=== PATIENT | female | born 1955 | race Caucasian/White ===

== ENCOUNTER 2021-12-30 08:03 | Observation (INO) ==
--- NOTE | 2021-12-30 08:27 | DR.DIZZY ---
HPI Time seen Time Seen by Provider: 12/30/21 08:25 Complaint Chief Complaint Doctor Comments: LOST OF BALANCE LAST PM AND FELL. ALSO HAS SOB AND COUGH. Context Stroke Symptoms: None ROS Review of Systems Constitutional: Weakness, Fatigue and Other (COUGH,VERTIGO) Eyes: No Symptoms Reported Respiratoy: Dry Cough and Short of Breath Cardiovascular: No Symptoms Reported Gastrointestinal/Abdominal: No Symptoms Reported Genitourinary: No Symptoms Reported Neurological: Dizziness Musculoskeletal: No Symptoms Reported Integumentary: No Symptoms Reported Hematologic/Lymphatic: No Symptoms Reported Endocrine: No Symptoms Reported Psychiatric: No Symptoms Reported All Other Systems: Reviewed and Negative PE Vital Signs Vitals: Temperature 98.4 F Pulse Rate 77 Respiratory Rate 30 Blood Pressure 181/77 O2 Sat by Pulse Oximetry 99 General Limitations: Other (DIZZY WITH CHANGE IN POSITION) General Appearance: Anxious and In Distress (MILD DISTRESS) Head Head Exam: Normal Inspection and Atraumatic Eyes Eye exam: Normal Appearance, PERRL and EOMI Pupils: Regular, Round: Bilateral and Reactive: Bilateral Sclera/Conjunctival: Normal Inspection: Bilateral ENT ENT Exam: Normal Exam, Normal Oropharynx and Normal External Ear Exam Neck Neck Exam: Normal Inspection, Full ROM and Trachea Midline Chest Chest Inspection: Normal Inspection and Symmetric Chest Wall Rise Respiratory Respiratory Exam: Normal Lung Sounds Bilat Cardiovascular Cardiovascular Exam: Regular Rate and Normal Rhythm Abdominal Exam Abdominal Exam: Normal Inspection, Normal Bowel Sounds and Soft Rectal Rectal Exam: Deferred Extremeties Extremities Exam: Normal Inspection and Full ROM Back Back Exam: Normal Inspection and Full ROM Neurologic Neurological Exam: Alert and Oriented X3 Speech: Fluid Speech Cranial Nerve Exam: EOM Function (II, III, IV, ): Normal, Facial Sensation (V): Normal, Facial Palsy (VII): Normal, Gag reflex (XI): Normal, Spinal Accessory Function (XI): Normal and Tongue Deviation: Normal Cerebellar Function: Finger to Nose: Normal Psychiatric Psychiatric Exam: Anxious MDM Differential Diagnosis Differential Diagnosis: Central Vertigo and Other (VIRAL URTI) COURSE Treatment Treatment: PATIENT REMAINED RELATIVELY STABLE IN ER . WAS PLACED ON [address] OF 88% UPON ARRIVAL. WAS FOUND TO HAVE RUL PNEUMONIA ON CHEST XRAY. WAS NEGATIVE FOR COVID AND HAD CBC OF 13.9. CALLED DR NG WHO IS MD TECHNICIAN [employer] AND SHE STATES THAT SHE WILL ACCEPT THE PATIENT WITH PNEUMONIA AND HYPOXIA. ABG SHOWED PO2 OF 47. CHEST XRAY SHOWED RUL PNEUMOMIA. PATIENT WAS MADE AWARE OF INTENT TO ADMIT AND WAS AGREABLE TO ADMIT. UTIL[facility] Labs Reviewed Laboratory Results Reviewed?: Yes Result Diagrams: 12/30/21 08:10 12/30/21 08:10 Laboratory: WBC 13.9 X10^3/uL (3.6-10.0) H 12/30/21 08:10 RBC 3.72 X10^6/uL (3.5-5.4) 12/30/21 08:10 Hgb 11.7 g/dL (12.0-16.0) L 12/30/21 08:10 Hct 34.1 % (36.0-47.0) L 12/30/21 08:10 MCV 91.8 fL (80.0-100.0) 12/30/21 08:10 MCH 31.5 pg (27.0-34.0) 12/30/21 08:10 MCHC 34.3 g/dL (33.0-35.0) 12/30/21 08:10 RDW 14.1 % (11.6-16.5) 12/30/21 08:10 Plt Count 327 X10^3/uL (150.0-450.0) 12/30/21 08:10 MPV 8.1 fL (7.4-11.0) 12/30/21 08:10 Neut % (Auto) 84.4 % (42.0-75.0) H 12/30/21 08:10 Lymph % (Auto) 9.6 % (21.0-51.0) L 12/30/21 08:10 [place] % (Auto) 3.9 % (0.0-13.0) 12/30/21 08:10 Eos % (Auto) 1.4 % (0.9-2.9) 12/30/21 08:10 Baso % (Auto) 0.7 % (0.2-1.0) 12/30/21 08:10 Neut # (Auto) 11.7 x10^3/uL (2.2-4.8) H 12/30/21 08:10 Lymph # (Auto) 1.3 X10^3/uL (1.3-2.9) 12/30/21 08:10 [place] # (Auto) 0.5 x10^3/uL (0.3-0.8) 12/30/21 08:10 Eos # (Auto) 0.2 x10^3/uL (0.0-0.2) 12/30/21 08:10 Baso # (Auto) 0.1 X10^3/uL (0.0-0.1) 12/30/21 08:10 Absolute Nucleated RBC 0.0 /100WBC 12/30/21 08:10 Sample Site Lbra 12/30/21 11:18 ABG pH 7.410 (7.35-7.45) 12/30/21 11:18 ABG pCO2 40.0 mmHg (35.0-45.0) 12/30/21 11:18 ABG pO2 47.0 mmHg (80.0-100.0) L* 12/30/21 11:18 ABG HCO3 25.4 mmol/L (22-26) 12/30/21 11:18 ABG O2 Saturation 83.0 % (90-100) L* 12/30/21 11:18 ABG Base Excess 0.7 mmol/L (-2.0-2.0) 12/30/21 11:18 [place] Test N/a 12/30/21 11:18 A-a Gradient 53.0 mmHg 12/30/21 11:18 FiO2 21.0 12/30/21 11:18 Blood Gas Comments Pt macey well elj 12/30/21 11:18 Sodium 138 mmol/L (136-145) 12/30/21 08:10 Corrected Sodium TNP 12/30/21 08:10 Potassium 4.0 mmol/L (3.5-5.1) 12/30/21 08:10 Chloride 103 mmol/L (98-107) 12/30/21 08:10 Carbon Dioxide 26.6 mmol/L (21-32) 12/30/21 08:10 BUN 25 mg/dL (7-18) H 12/30/21 08:10 Creatinine 1.22 mg/dL (0.55-1.02) H 12/30/21 08:10 Est GFR (MDRD) Af Amer 57 (>60) L 12/30/21 08:10 Est GFR (MDRD) Non-Af 47 (>60) L 12/30/21 08:10 Glucose 94 mg/dL (65-99) 12/30/21 08:10 Calcium 8.7 mg/dL (8.5-10.1) 12/30/21 08:10 Corrected Calcium 9.6 mg/dL (8.5-10.1) 12/30/21 08:10 Total Bilirubin 0.50 mg/dL (0.2-1.0) 12/30/21 08:10 AST 32 Units/L (15-37) 12/30/21 08:10 ALT 43 Units/L (12-78) 12/30/21 08:10 Alkaline Phosphatase 96 Units/L (46-116) 12/30/21 08:10 Creatine Kinase 124 Units/L (26-192) 12/30/21 08:10 CK-MB (CK-2) 2.6 ng/mL (0-4.0) 12/30/21 08:10 CK/CKMB % Calc 2.1 % (<4) 12/30/21 08:10 Troponin I High Sens 4.8 ng/L (4.0-60.0) 12/30/21 08:10 Total Protein 7.3 g/dL (6.4-8.2) 12/30/21 08:10 Albumin 2.9 g/dL (3.4-5.0) L 12/30/21 08:10 Globulin 4.4 g/dL (2.5-4.5) 12/30/21 08:10 Albumin/Globulin Ratio 0.7 Ratio (1.1-2.1) L 12/30/21 08:10 Specimen Type Clean catch urine 12/30/21 09:55 Urine Color Pale yellow (YELLOW) 12/30/21 09:55 Urine Appearance Clear (CLEAR) 12/30/21 09:55 Urine pH 6.0 (5.0 - 8.0) 12/30/21 09:55 Ur Specific [place] 1.020 (1.000-1.030) 12/30/21 09:55 Urine Protein Negative (NEGATIVE) 12/30/21 09:55 Urine Glucose (UA) Negative (NEGATIVE) 12/30/21 09:55 Urine Ketones Negative (NEGATIVE) 12/30/21 09:55 Urine Blood 1+ (NEGATIVE) 12/30/21 09:55 Urine Nitrite Negative (NEGATIVE) 12/30/21 09:55 Urine Bilirubin Negative (NEGATIVE) 12/30/21 09:55 Urine Urobilinogen Normal (NORMAL) 12/30/21 09:55 Ur Leukocyte Esterase Negative (NEGATIVE) 12/30/21 09:55 Urine RBC 0-2 /HPF (0-3) 12/30/21 09:55 Urine WBC 0-2 /HPF (0-5) 12/30/21 09:55 Ur Squamous Epith Cells Rare /HPF (NEGATIVE) 12/30/21 09:55 Urine Bacteria Trace /HPF (NEGATIVE) 12/30/21 09:55 Hyaline Casts Few /LPF (NEGATIVE) 12/30/21 09:55 Ur Culture Indicated? No/not indicated 12/30/21 09:55 SARS-CoV-2 (PCR) Negative (NEGATIVE) 12/30/21 08:08 Influenza Type A (PCR) Negative (NEGATIVE) 12/30/21 08:08 Influenza Type B (PCR) Negative (NEGATIVE) 12/30/21 08:08 RSV (PCR) Negative (NEGATIVE) 12/30/21 08:08 Opioid Opioid Risk Tool Total: 0 Total Score Risk Category: Low Risk Copyright: Javi LEMON predicting aberrant behaviors Discharge Plan Diagnosis Discharge Problem: Pneumonia, Hypoxia Discharge Plan Patient Disposition: 09 ADMITTED INPATIENT Condition: Stable Health Concerns: Post Hospitalization: new medications and changes needed to prevent readmission or further decline. Pt educated and given instructions on all concerns. Plan of Treatment: Continue with present treatment and follow up plan. Pt is to keep follow up appointment as instructed and take medications as ordered. Orders to Discharge Patient Discharge Orders: Transfer (Routine); Ordered 12/30/21 Ordered By: Cleve Valentino Follow ups/Referrals Follow ups/Referrals: FELICITA SPENCE [Primary Care Provider] - 3 days Instructions Stand Alone Forms: Precautions for COVID19, [facility], Patient Portal, Social Distancing
[2021-12-30 08:34] LABS: BASOPHILS # (AUTO) 0.1 X10^3/uL (0.0-0.1); BASOPHILS % (AUTO) 0.7 % (0.2-1.0); EOSINOPHILS # (AUTO) 0.2 x10^3/uL (0.0-0.2); EOSINOPHILS % (AUTO) 1.4 % (0.9-2.9); HEMATOCRIT 34.1 % (36.0-47.0); HEMOGLOBIN 11.7 g/dL (12.0-16.0); LYMPHOCYTES # (AUTO) 1.3 X10^3/uL (1.3-2.9); LYMPHOCYTES % (AUTO) 9.6 % (21.0-51.0); MEAN CORPUSCULAR HEMOGLOBIN 31.5 pg (27.0-34.0); MEAN CORPUSCULAR HGB CONC 34.3 g/dL (33.0-35.0); MEAN CORPUSCULAR VOLUME 91.8 fL (80.0-100.0); MEAN PLATELET VOLUME 8.1 fL (7.4-11.0); MONOCYTES # (AUTO) 0.5 x10^3/uL (0.3-0.8); MONOCYTES % (AUTO) 3.9 % (0.0-13.0); NEUTROPHILS # (AUTO) 11.7 x10^3/uL (2.2-4.8); NEUTROPHILS % (AUTO) 84.4 % (42.0-75.0); RED BLOOD COUNT 3.72 X10^6/uL (3.5-5.4); RED CELL DISTRIBUTION WIDTH 14.1 % (11.6-16.5); WHITE BLOOD COUNT 13.9 X10^3/uL (3.6-10.0)
[2021-12-30 08:40] VITALS: BMI 29.2
[2021-12-30 08:54] LABS: ALANINE AMINOTRANSFERASE 43 Units/L (12-78); ALBUMIN 2.9 g/dL (3.4-5.0); ALKALINE PHOSPHATASE 96 Units/L (46-116); ASPARTATE AMINO TRANSFERASE 32 Units/L (15-37); BLOOD UREA NITROGEN 25 mg/dL (7-18); CALCIUM 8.7 mg/dL (8.5-10.1); CARBON DIOXIDE 26.6 mmol/L (21-32); CHLORIDE 103 mmol/L (98-107); CKMB % 2.1 % (<4); COR CA(FOR HYPOALB) 9.6 mg/dL (8.5-10.1); CREATINE KINASE 124 Units/L (26-192); CREATINE KINASE MB 2.6 ng/mL (0-4.0); CREATININE 1.22 mg/dL (0.55-1.02); SODIUM 138 mmol/L (136-145); TOTAL PROTEIN 7.3 g/dL (6.4-8.2); eGFR NON BLACK RACES 47 (>60)
--- NOTE | 2021-12-30 09:03 | CT ---
HISTORYDIZZINESSSTUDYBRAIN W/O CONCOMPARISONNone.TECHNIQUEMultiple axial images of the head were performed from the skullbase to the vertex using standard departmental protocol. Sagittal and coronal reformatted images were performed. Dose reduction techniques including Automated Exposure Control (AEC) and adjustment of mA and kV were utilized.FINDINGSThe lateral ventricles and basilar cisterns are patent.No parenchymal mass or hematoma. Walters-white differentiation appears acutely preserved.No extra-axial collection.The globes are intact.No air fluid levels in the paranasal sinuses. No paranasal sinus wall thickening or sclerosis. Mastoid air cells are clear.The calvarium is intact. Small presumed contusion at the left posterior scalp.IMPRESSIONNo acute intracranial abnormality.Electronically signed by: Bayron Moore (Dec 30, 2021 09:01:56)
--- NOTE | 2021-12-30 09:11 | RAD ---
HISTORYDizzySTUDYPortable AP chestCOMPARISONNone availableFINDINGSNormal heart size and contour. There is a diffuse airspace involvement in the periphery of right upper and lower lobes without evidence for mass formation or pleural fluid. The left lung is clear.IMPRESSIONDiffuse infiltrate in the right lung may be acute or chronic; there is no prior exam available for comparison. Findings are concerning for pneumonia. Correlate with clinical findings and follow-up.Electronically signed by: DANY GOMEZ (Dec 30, 2021 09:10:18)
[2021-12-30] MEDS ORDERED: ZOFRAN TAB 4 MG PO PRN (10:08)
[2021-12-30] MEDS ORDERED: ZOFRAN TAB 4 MG ONE (10:09)
[2021-12-30] MEDS ORDERED: ZOFRAN TAB 4 MG PO ONE (10:13)
[2021-12-30 10:25] LABS: BILIRUBIN,URINE NEGATIVE (NEGATIVE); BLOOD/HEMOGLOBIN,URINE 1+ (NEGATIVE); GLUCOSE, URINE NEGATIVE (NEGATIVE); KETONES,URINE NEGATIVE (NEGATIVE); LEUKOCYTE ESTERASE ,URINE NEGATIVE (NEGATIVE); NITRITES,URINE NEGATIVE (NEGATIVE); PROTEIN,URINE NEGATIVE (NEGATIVE); UROBILINOGEN,URINE NORMAL (NORMAL)
[2021-12-30 10:37] LABS: APPEARANCE,URINE CLEAR (CLEAR); BACTERIA,URINE TRACE /HPF (NEGATIVE); COLOR,URINE PALE YELLOW (YELLOW); RBC,URINE 0-2 /HPF (0-3); SQUAMOUS EPITHELIAL CELL,UR RARE /HPF (NEGATIVE)
[2021-12-30 10:38] LABS: HYALINE CASTS, URINE FEW /LPF (NEGATIVE)
[2021-12-30] MEDS ORDERED: SOLU-Medrol 125 MG VIAL IVP ONE (11:04)
[2021-12-30] MEDS ORDERED: TESSALON PERLES PO ONE ×2 (11:05→11:11)
[2021-12-30] MEDS ORDERED: ROCEPHIN VIAL 1 GRAM ONE (11:11)
[2021-12-30] MEDS ORDERED: SOLU-Medrol 125 MG VIAL ONE (11:11)
[2021-12-30] MEDS ORDERED: NS 100 ML IV 100 ML ONE (11:12)
[2021-12-30] MEDS: ROCEPHIN VIAL 1 GRAM 1 G in NS 100 ML IV 100 ML IV SCH (11:21)
[2021-12-30 11:25] LABS: ABG BASE EXCESS 0.7 mmol/L (-2.0-2.0); ABG HCO3 25.4 mmol/L (22-26)
[2021-12-30] MEDS ORDERED: ROCEPHIN 1 GRAM IV PREMIX 1 G/50 ML IV.SOLN. IV SCH (12:29)
[2021-12-30] MEDS ORDERED: SALINE 3% 15 ML NEB TX NEB ONE (16:31)
[2021-12-30] MEDS ORDERED: SALINE 3% 15 ML NEB TX ONE (16:36)
[2021-12-30] MEDS ORDERED: DUONEB 0.5 MG/3 MG (3 mL) NEB ONE (16:36)
[2021-12-30] MEDS: DUONEB 0.5 MG/3 MG (3 mL) NEB SCH (16:40)
[2021-12-30] MEDS ORDERED: RESTORIL CAP 30 MG PO PRN (16:56)
[2021-12-30] MEDS: NEURONTIN CAP 400 MG PO SCH ×3 (17:20→22:10)
[2021-12-30] MEDS: DIOVAN TAB 80 MG PO SCH (17:20)
[2021-12-30] MEDS ORDERED: PULMICORT NEB TX 0.5 MG NEB ONE (19:58)
[2021-12-30] MEDS ORDERED: RESTORIL CAP 15 MG PO ONE (20:06)
[2021-12-30] MEDS: RESTORIL CAP 15 MG PO PRN (20:26)
[2021-12-30] MEDS: NORCO 7.5/325 MG TAB PO PRN (20:27)
[2021-12-30] MEDS: ZOCOR TAB 10 MG PO SCH (20:27)
[2021-12-30] MEDS: PROzac PO SCH (20:27)
[2021-12-30] MEDS: PULMICORT NEB TX 0.5 MG NEB SCH (20:54)
[2021-12-30] MEDS ORDERED: NORCO 7.5/325 MG TAB PO SCH (21:00)
[2021-12-30] MEDS ORDERED: PULMICORT NEB TX 0.5 MG NEB SCH (21:00)
[2021-12-30] MEDS ORDERED: PROzac PO SCH (21:00)
[2021-12-30] MEDS: XANAX PO PRN (21:00)
[2021-12-31] MEDS: DUONEB 0.5 MG/3 MG (3 mL) NEB SCH ×4 (00:10→18:17)
[2021-12-31] MEDS: NEURONTIN CAP 400 MG PO SCH ×3 (05:10→21:47)
[2021-12-31 05:20] LABS: BASOPHILS % (AUTO) 0.1 % (0.2-1.0); HEMATOCRIT 32.6 % (36.0-47.0); HEMOGLOBIN 11.1 g/dL (12.0-16.0); LYMPHOCYTES # (AUTO) 0.5 X10^3/uL (1.3-2.9); LYMPHOCYTES % (AUTO) 4.4 % (21.0-51.0); MEAN CORPUSCULAR HEMOGLOBIN 30.9 pg (27.0-34.0); MEAN PLATELET VOLUME 7.9 fL (7.4-11.0); MONOCYTES # (AUTO) 0.2 x10^3/uL (0.3-0.8); MONOCYTES % (AUTO) 1.9 % (0.0-13.0); NEUTROPHILS % (AUTO) 93.6 % (42.0-75.0); RED BLOOD COUNT 3.58 X10^6/uL (3.5-5.4); RED CELL DISTRIBUTION WIDTH 14.2 % (11.6-16.5); WHITE BLOOD COUNT 11.8 X10^3/uL (3.6-10.0)
[2021-12-31 05:52] LABS: ALANINE AMINOTRANSFERASE 37 Units/L (12-78); ALBUMIN 2.4 g/dL (3.4-5.0); ALKALINE PHOSPHATASE 92 Units/L (46-116); ASPARTATE AMINO TRANSFERASE 18 Units/L (15-37); BLOOD UREA NITROGEN 23 mg/dL (7-18); CALCIUM 8.7 mg/dL (8.5-10.1); CARBON DIOXIDE 27.3 mmol/L (21-32); CHLORIDE 104 mmol/L (98-107); COR NA(FOR HYPERGLY) 138 mmol/L (136-145); SODIUM 137 mmol/L (136-145); TOTAL PROTEIN 6.6 g/dL (6.4-8.2); eGFR NON BLACK RACES > 60 (>60)
[2021-12-31 06:13] LABS: PLATELET MORPHOLOGY COMMENT NORMAL (NORMAL)
[2021-12-31] MEDS: DIOVAN TAB 80 MG PO SCH (08:21)
[2021-12-31] MEDS: PROzac PO SCH ×2 (08:21→20:50)
[2021-12-31] MEDS: ROCEPHIN VIAL 1 GRAM 1 G in NS 100 ML IV 100 ML IV SCH (08:22)
[2021-12-31] MEDS ORDERED: PROzac PO SCH ×2 (09:00)
[2021-12-31] MEDS: PULMICORT NEB TX 0.5 MG NEB SCH ×2 (09:40→20:00)
[2021-12-31] MEDS: NORCO 7.5/325 MG TAB PO PRN ×2 (10:09→20:51)
[2021-12-31] MEDS: ZITHROMAX INJ 500 MG VIAL 250 MG in NS 250 ML IV 250 ML IV SCH (11:34)
--- NOTE | 2021-12-31 11:41 | DR.H&P ---
H&P History & Physical for Day of: H&P Date: 12/31/21 Chief Complaint Chief Complaint: fall, shortness of breath Allergies Allergies Allergy/AdvReac Type Severity Reaction Status Date / Time No Known Drug Allergies Allergy Verified 12/30/21 10:08 History of Present Illness History of Present Illness: Ms Lofton is a 66y/o female with a PMH of COPD, chronic pain disorder due to DDD, anxiety/depression, insomnia and HTN presented with worsening shortness of breath, cough and dizziness. She reports having a fall on and feeling sick since then. ER wokr-up included CXR which showed right lung infiltrate. Cardiac enzymes were negative. CT-brain did not show any acute process. Patient's ABG showed significant hypoxia and she was requiring 2L O2 via NC. Patient was started on IV Rocephin and admitted for pneumonia and respiratory failure. She feels slightly better today. She has been having productive cough. Labs/imaging reviewed COVID (-) AB.41/40/47/25 sats 83% on room air Cultures pending Plan: will order CTA-chest to evaluate further. Continue IV Rocephin, add IV azithromycin. Continue nebs and pulmicort. Wean O2 as tolerated to keep sats > 92%. Resume home medications. Discussed patient's benzodiazepines and it's side effects. Patient currently takes xanax, Klonopin and Restoril for anxiety and insomnia. Resume BP medications. Monitor AM labs/imaging. Past Medical History Past Medical History: GERD and Hypertension Social History Does patient currently use any type of tobacco product: No (Pt states quit 3 to 4 day) Have you used tobacco products in the last 12 months: Yes Type of Tobacco Use: Cigarettes Does any household member use tobacco: Yes Alcohol Use: None Drug Use: None Medications Home Medications: No Known Drug Allergies Allergy (Verified 12/30/21 10:08) CONTINUE taking the following medications alprazolam 0.5 mg tablet 1 tab PO BID PRN 12/30/21 [History] clonazepam 1 mg tablet 1 tab PO QPM PRN 12/30/21 [History] fluoxetine 20 mg capsule 3 cap PO QPM 12/30/21 [History] gabapentin 400 mg capsule 1 cap PO TID 12/30/21 [History] hydrocodone 7.5 mg-acetaminophen 325 mg tablet 1 tab PO BID PRN 12/30/21 [History] ibuprofen 800 mg tablet 1 tab PO TID PRN 12/30/21 [History] simvastatin 10 mg tablet 1 tab PO QPM 12/30/21 [History] temazepam 30 mg capsule 1 cap PO QPM PRN 12/30/21 [History] valsartan 40 mg tablet 1 tab PO QDAY 12/30/21 [History] Labs Result Diagrams: 12/31/21 04:40 12/31/21 04:40 Labs: 12/31/21 06:57 Sputum - Expectorated Sputum - Final Laboratory WBC 11.8 X10^3/uL (3.6-10.0) H 12/31/21 04:40 RBC 3.58 X10^6/uL (3.5-5.4) 12/31/21 04:40 Hgb 11.1 g/dL (12.0-16.0) L 12/31/21 04:40 Hct 32.6 % (36.0-47.0) L 12/31/21 04:40 MCV 91.0 fL (80.0-100.0) 12/31/21 04:40 MCH 30.9 pg (27.0-34.0) 12/31/21 04:40 MCHC 34.0 g/dL (33.0-35.0) 12/31/21 04:40 RDW 14.2 % (11.6-16.5) 12/31/21 04:40 Plt Count 350 X10^3/uL (150.0-450.0) 12/31/21 04:40 Plt Count Comment Adequate (ADEQUATE) 12/31/21 04:40 MPV 7.9 fL (7.4-11.0) 12/31/21 04:40 Neut % (Auto) 93.6 % (42.0-75.0) H 12/31/21 04:40 Lymph % (Auto) 4.4 % (21.0-51.0) L 12/31/21 04:40 [place] % (Auto) 1.9 % (0.0-13.0) 12/31/21 04:40 Eos % (Auto) 0.0 % (0.9-2.9) L 12/31/21 04:40 Baso % (Auto) 0.1 % (0.2-1.0) L 12/31/21 04:40 Neut # (Auto) 11.0 x10^3/uL (2.2-4.8) H 12/31/21 04:40 Lymph # (Auto) 0.5 X10^3/uL (1.3-2.9) L 12/31/21 04:40 [place] # (Auto) 0.2 x10^3/uL (0.3-0.8) L 12/31/21 04:40 Eos # (Auto) 0.0 x10^3/uL (0.0-0.2) 12/31/21 04:40 Baso # (Auto) 0.0 X10^3/uL (0.0-0.1) 12/31/21 04:40 Absolute Nucleated RBC 0.1 /100WBC 12/31/21 04:40 Total Counted 100 12/31/21 04:40 Neutrophils % (Manual) 93 % (39-76) H 12/31/21 04:40 Lymphocytes % (Manual) 4 % (13-43) L 12/31/21 04:40 Monocytes % (Manual) 3 % (4-9) L 12/31/21 04:40 Plt Morphology Comment Normal (NORMAL) 12/31/21 04:40 RBC Morphology Normal (NORMAL) 12/31/21 04:40 Sample Site [facility] 12/30/21 11:18 ABG pH 7.410 (7.35-7.45) 12/30/21 11:18 ABG pCO2 40.0 mmHg (35.0-45.0) 12/30/21 11:18 ABG pO2 47.0 mmHg (80.0-100.0) L* 12/30/21 11:18 ABG HCO3 25.4 mmol/L (22-26) 12/30/21 11:18 ABG O2 Saturation 83.0 % (90-100) L* 12/30/21 11:18 ABG Base Excess 0.7 mmol/L (-2.0-2.0) 12/30/21 11:18 [place] Test N/a 12/30/21 11:18 A-a Gradient 53.0 mmHg 12/30/21 11:18 FiO2 21.0 12/30/21 11:18 Blood Gas Comments Pt macey well elj 12/30/21 11:18 Sodium 137 mmol/L (136-145) 12/31/21 04:40 Corrected Sodium 138 mmol/L (136-145) 12/31/21 04:40 Potassium 4.5 mmol/L (3.5-5.1) 12/31/21 04:40 Chloride 104 mmol/L (98-107) 12/31/21 04:40 Carbon Dioxide 27.3 mmol/L (21-32) 12/31/21 04:40 BUN 23 mg/dL (7-18) H 12/31/21 04:40 Creatinine 0.90 mg/dL (0.55-1.02) 12/31/21 04:40 Est GFR (MDRD) Af Amer > 60 (>60) 12/31/21 04:40 Est GFR (MDRD) Non-Af > 60 (>60) 12/31/21 04:40 Glucose 136 mg/dL (65-99) H 12/31/21 04:40 Calcium 8.7 mg/dL (8.5-10.1) 12/31/21 04:40 Corrected Calcium 10.0 mg/dL (8.5-10.1) 12/31/21 04:40 Total Bilirubin 0.20 mg/dL (0.2-1.0) 12/31/21 04:40 AST 18 Units/L (15-37) 12/31/21 04:40 ALT 37 Units/L (12-78) 12/31/21 04:40 Alkaline Phosphatase 92 Units/L (46-116) 12/31/21 04:40 Creatine Kinase 124 Units/L (26-192) 12/30/21 08:10 CK-MB (CK-2) 2.6 ng/mL (0-4.0) 12/30/21 08:10 CK/CKMB % Calc 2.1 % (<4) 12/30/21 08:10 Troponin I High Sens 4.8 ng/L (4.0-60.0) 12/30/21 08:10 Total Protein 6.6 g/dL (6.4-8.2) 12/31/21 04:40 Albumin 2.4 g/dL (3.4-5.0) L 12/31/21 04:40 Globulin 4.2 g/dL (2.5-4.5) 12/31/21 04:40 Albumin/Globulin Ratio 0.6 Ratio (1.1-2.1) L 12/31/21 04:40 Specimen Type Clean catch urine 12/30/21 09:55 Urine Color Pale yellow (YELLOW) 12/30/21 09:55 Urine Appearance Clear (CLEAR) 12/30/21 09:55 Urine pH 6.0 (5.0 - 8.0) 12/30/21 09:55 Ur Specific [place] 1.020 (1.000-1.030) 12/30/21 09:55 Urine Protein Negative (NEGATIVE) 12/30/21 09:55 Urine Glucose (UA) Negative (NEGATIVE) 12/30/21 09:55 Urine Ketones Negative (NEGATIVE) 12/30/21 09:55 Urine Blood 1+ (NEGATIVE) 12/30/21 09:55 Urine Nitrite Negative (NEGATIVE) 12/30/21 09:55 Urine Bilirubin Negative (NEGATIVE) 12/30/21 09:55 Urine Urobilinogen Normal (NORMAL) 12/30/21 09:55 Ur Leukocyte Esterase Negative (NEGATIVE) 12/30/21 09:55 Urine RBC 0-2 /HPF (0-3) 12/30/21 09:55 Urine WBC 0-2 /HPF (0-5) 12/30/21 09:55 Ur Squamous Epith Cells Rare /HPF (NEGATIVE) 12/30/21 09:55 Urine Bacteria Trace /HPF (NEGATIVE) 12/30/21 09:55 Hyaline Casts Few /LPF (NEGATIVE) 12/30/21 09:55 Ur Culture Indicated? No/not indicated 12/30/21 09:55 SARS-CoV-2 (PCR) Negative (NEGATIVE) 12/30/21 08:08 Influenza Type A (PCR) Negative (NEGATIVE) 12/30/21 08:08 Influenza Type B (PCR) Negative (NEGATIVE) 12/30/21 08:08 RSV (PCR) Negative (NEGATIVE) 12/30/21 08:08 Review of Systems Constitutional: Weakness and Malaise ENT: No Symptoms Reported Respiratory: Cough, SOB with Excertion and Sputum Cardiovascular: No Symptoms Reported Gastrointestinal: Nausea Genitourinary: No Symptoms Reported Musculoskeletal: Back Pain and Neck Pain Skin: No Symptoms Reported Neurological: No Symptoms Reported Physical Exam Vital Signs: Temperature 98.6 F Pulse Rate [Left Brachial] 81 Pulse Rate 70 Respiratory Rate 23 Blood Pressure [Left Arm] 118/62 Blood Pressure 181/77 O2 Sat by Pulse Oximetry 94 Oriented: Normal Eyes: Normal Ear: Normal Nose: Normal Throat: Normal Respiratory: Rales Throughout Cardiovascular: Normal Auscultation: Bowel Sounds: Normal Palpation: Normal Tenderness: Normal Skin: Normal Musculoskeletal: Back:Thoracic, Back:Lumbar, Back:Midline and Back:Paraspinous Psychiatric: Normal Mood Description: Calm Affect: Normal Speech Pattern: Clear and Appropriate Assessment/Plan (1) Pneumonia: Status: Acute (2) Hypoxia: Status: Acute (3) Anemia: Status: Acute (4) HTN (hypertension): Status: Acute (5) DDD (degenerative disc disease): Status: Acute (6) Anxiety: Status: Acute (7) Insomnia: Status: Acute
--- NOTE | 2021-12-31 11:43 | CT ---
PROCEDURE: CTA Chest .HISTORY: HYPOXIA, PNEUMONIA .TECHNIQUE: Axial images were performed through the chest with the administration of IV contrast with multiplanar reformations . 3D and MIPS reconstructions were performed and reviewed. Dose reduction techniques including Automated Exposure Control (AEC) and adjustment of mA and kV were utilized .COMPARISON: None .TECHNICAL QUALITY: Satisfactory .FINDINGS:Mild atherosclerosis aorta with no aneurysm or dissection.No evidence of pulmonary embolus.Mediastinum and hilar regions show no masses or lymphadenopathy.Normal size heart with no pericardial fluid.No pulmonary consolidation, masses, or pleural fluid. Some peripheral fibrosis both lung loera.Visualized upper abdomen shows no significant abnormality.No acute bony abnormality. Old compression fracture involving T11 vertebral body.IMPRESSION:1. No pulmonary embolus or aortic dissection.2. No pulmonary consolidation.Electronically signed by: Dawit Rogers (Dec 31, 2021 11:42:30)
[2021-12-31] MEDS: XANAX PO PRN (18:17)
[2021-12-31] MEDS: ZOCOR TAB 10 MG PO SCH (20:51)
[2021-12-31] MEDS: RESTORIL CAP 15 MG PO PRN (21:29)
[2022-01-01] MEDS: DUONEB 0.5 MG/3 MG (3 mL) NEB SCH ×5 (00:10→22:00)
[2022-01-01] MEDS: NEURONTIN CAP 400 MG PO SCH ×3 (05:08→21:55)
[2022-01-01 05:11] LABS: BASOPHILS # (AUTO) 0.1 X10^3/uL (0.0-0.1); EOSINOPHILS # (AUTO) 0.1 x10^3/uL (0.0-0.2); EOSINOPHILS % (AUTO) 0.8 % (0.9-2.9); HEMATOCRIT 31.8 % (36.0-47.0); HEMOGLOBIN 10.7 g/dL (12.0-16.0); LYMPHOCYTES # (AUTO) 1.7 X10^3/uL (1.3-2.9); LYMPHOCYTES % (AUTO) 12.1 % (21.0-51.0); MEAN CORPUSCULAR HEMOGLOBIN 30.8 pg (27.0-34.0); MEAN CORPUSCULAR HGB CONC 33.8 g/dL (33.0-35.0); MEAN CORPUSCULAR VOLUME 91.2 fL (80.0-100.0); MEAN PLATELET VOLUME 8.5 fL (7.4-11.0); MONOCYTES # (AUTO) 0.7 x10^3/uL (0.3-0.8); MONOCYTES % (AUTO) 5.3 % (0.0-13.0); NEUTROPHILS # (AUTO) 11.5 x10^3/uL (2.2-4.8); NEUTROPHILS % (AUTO) 80.8 % (42.0-75.0); RED BLOOD COUNT 3.49 X10^6/uL (3.5-5.4); RED CELL DISTRIBUTION WIDTH 13.9 % (11.6-16.5); WHITE BLOOD COUNT 14.2 X10^3/uL (3.6-10.0)
[2022-01-01 05:13] LABS: BLOOD UREA NITROGEN 19 mg/dL (7-18); CALCIUM 8.9 mg/dL (8.5-10.1); CARBON DIOXIDE 28.7 mmol/L (21-32); CHLORIDE 104 mmol/L (98-107); CREATININE 0.87 mg/dL (0.55-1.02); SODIUM 140 mmol/L (136-145); eGFR NON BLACK RACES > 60 (>60)
[2022-01-01] MEDS: PROzac PO SCH ×2 (08:36→20:33)
[2022-01-01] MEDS: DIOVAN TAB 80 MG PO SCH (08:36)
[2022-01-01] MEDS: ZITHROMAX INJ 500 MG VIAL 250 MG in NS 250 ML IV 250 ML IV SCH (08:37)
[2022-01-01] MEDS: ROCEPHIN VIAL 1 GRAM 1 G in NS 100 ML IV 100 ML IV SCH (08:37)
[2022-01-01] MEDS: NORCO 7.5/325 MG TAB PO PRN ×2 (08:37→20:34)
[2022-01-01] MEDS: PULMICORT NEB TX 0.5 MG NEB SCH ×2 (09:00→22:00)
--- NOTE | 2022-01-01 11:22 | PCM.PROG ---
Progress Note Progress Note for Day of Date of Exam: 01/01/22 Subjective Subjective: Patient seen at bedside, no events overnight. She states she has been coughing a lot and not able to bring any sputum up. She reports some exertional dyspnea. Denies fever or chills. Denies N/V/D. She remains on 2L NC. Labs/imaging reviewed: Hgb 10.7 CTA-chest: no PE, fibrosis noted Sputum: Gram (-) rods Blood cx (-) Plan: will add prednisone for pulmonary fibrosis, continue IV Rocephin and Azithromycin. Continue nebs and pulmicort. Wean O2 as tolerated to keep sats > 92%. Continue anti-tussives. Follow pending cultures. Monitor AM labs/imaging. Past Medical Family Social History Allergies: Allergies No Known Drug Allergies Allergy (Verified 12/30/21 10:08) Vital Signs and I&O's Vital Signs: Temperature 98.2 F Pulse Rate [Left Brachial] 68 Pulse Rate 70 Respiratory Rate 20 Blood Pressure [Right Arm] 145/72 Blood Pressure [Left Arm] 129/59 Blood Pressure 181/77 O2 Sat by Pulse Oximetry 95 Intake and Output: Intake & Output 12/29/21 12/30/21 12/31/21 01/01/22 23:59 23:59 23:59 23:59 Intake Total 1000 / 1000 1367 / 1367 1320 / 1320 Balance 1000 / 1000 1367 / 1367 1320 / 1320 Physical Exam Oriented: Normal Eyes: Normal Ear: Normal Nose: Normal Throat: Normal Respiratory: Generalized, Wheezes and Rales Cardiovascular: Normal Auscultation: Bowel Sounds: Normal Tenderness: Normal Skin: Normal Musculoskeletal: Back:Thoracic, Back:Lumbar, Back:Midline and Back:Paraspinous Psychiatric: Normal Mood Description: Calm Affect: Normal Speech Pattern: Clear and Appropriate Laboratory and Diagnostics Result Diagrams: 01/01/22 04:05 01/01/22 04:05 Labs: 12/31/21 06:57 Sputum - Expectorated Sputum Sputum Culture - Preliminary 12/31/21 06:57 Sputum - Expectorated Sputum - Final 12/30/21 12:05 Blood Blood Culture - Preliminary 12/30/21 11:48 Blood Blood Culture - Preliminary Laboratory WBC 14.2 X10^3/uL (3.6-10.0) H 01/01/22 04:05 RBC 3.49 X10^6/uL (3.5-5.4) L 01/01/22 04:05 Hgb 10.7 g/dL (12.0-16.0) L 01/01/22 04:05 Hct 31.8 % (36.0-47.0) L 01/01/22 04:05 MCV 91.2 fL (80.0-100.0) 01/01/22 04:05 MCH 30.8 pg (27.0-34.0) 01/01/22 04:05 MCHC 33.8 g/dL (33.0-35.0) 01/01/22 04:05 RDW 13.9 % (11.6-16.5) 01/01/22 04:05 Plt Count 351 X10^3/uL (150.0-450.0) 01/01/22 04:05 Plt Count Comment Adequate (ADEQUATE) 12/31/21 04:40 MPV 8.5 fL (7.4-11.0) 01/01/22 04:05 Neut % (Auto) 80.8 % (42.0-75.0) H 01/01/22 04:05 Lymph % (Auto) 12.1 % (21.0-51.0) L 01/01/22 04:05 [place] % (Auto) 5.3 % (0.0-13.0) 01/01/22 04:05 Eos % (Auto) 0.8 % (0.9-2.9) L 01/01/22 04:05 Baso % (Auto) 1.0 % (0.2-1.0) 01/01/22 04:05 Neut # (Auto) 11.5 x10^3/uL (2.2-4.8) H 01/01/22 04:05 Lymph # (Auto) 1.7 X10^3/uL (1.3-2.9) 01/01/22 04:05 [place] # (Auto) 0.7 x10^3/uL (0.3-0.8) 01/01/22 04:05 Eos # (Auto) 0.1 x10^3/uL (0.0-0.2) 01/01/22 04:05 Baso # (Auto) 0.1 X10^3/uL (0.0-0.1) 01/01/22 04:05 Absolute Nucleated RBC 0.0 /100WBC 01/01/22 04:05 Total Counted 100 12/31/21 04:40 Neutrophils % (Manual) 93 % (39-76) H 12/31/21 04:40 Lymphocytes % (Manual) 4 % (13-43) L 12/31/21 04:40 Monocytes % (Manual) 3 % (4-9) L 12/31/21 04:40 Plt Morphology Comment Normal (NORMAL) 12/31/21 04:40 RBC Morphology Normal (NORMAL) 12/31/21 04:40 Sample Site Lbra 12/30/21 11:18 ABG pH 7.410 (7.35-7.45) 12/30/21 11:18 ABG pCO2 40.0 mmHg (35.0-45.0) 12/30/21 11:18 ABG pO2 47.0 mmHg (80.0-100.0) L* 12/30/21 11:18 ABG HCO3 25.4 mmol/L (22-26) 12/30/21 11:18 ABG O2 Saturation 83.0 % (90-100) L* 12/30/21 11:18 ABG Base Excess 0.7 mmol/L (-2.0-2.0) 12/30/21 11:18 [place] Test N/a 12/30/21 11:18 A-a Gradient 53.0 mmHg 12/30/21 11:18 FiO2 21.0 12/30/21 11:18 Blood Gas Comments Pt macey well elj 12/30/21 11:18 Sodium 140 mmol/L (136-145) 01/01/22 04:05 Corrected Sodium TNP 01/01/22 04:05 Potassium 3.9 mmol/L (3.5-5.1) 01/01/22 04:05 Chloride 104 mmol/L (98-107) 01/01/22 04:05 Carbon Dioxide 28.7 mmol/L (21-32) 01/01/22 04:05 BUN 19 mg/dL (7-18) H 01/01/22 04:05 Creatinine 0.87 mg/dL (0.55-1.02) 01/01/22 04:05 Est GFR (MDRD) Af Amer > 60 (>60) 01/01/22 04:05 Est GFR (MDRD) Non-Af > 60 (>60) 01/01/22 04:05 Glucose 96 mg/dL (65-99) 01/01/22 04:05 Calcium 8.9 mg/dL (8.5-10.1) 01/01/22 04:05 Corrected Calcium 10.0 mg/dL (8.5-10.1) 12/31/21 04:40 Total Bilirubin 0.20 mg/dL (0.2-1.0) 12/31/21 04:40 AST 18 Units/L (15-37) 12/31/21 04:40 ALT 37 Units/L (12-78) 12/31/21 04:40 Alkaline Phosphatase 92 Units/L (46-116) 12/31/21 04:40 Creatine Kinase 124 Units/L (26-192) 12/30/21 08:10 CK-MB (CK-2) 2.6 ng/mL (0-4.0) 12/30/21 08:10 CK/CKMB % Calc 2.1 % (<4) 12/30/21 08:10 Troponin I High Sens 4.8 ng/L (4.0-60.0) 12/30/21 08:10 Total Protein 6.6 g/dL (6.4-8.2) 12/31/21 04:40 Albumin 2.4 g/dL (3.4-5.0) L 12/31/21 04:40 Globulin 4.2 g/dL (2.5-4.5) 12/31/21 04:40 Albumin/Globulin Ratio 0.6 Ratio (1.1-2.1) L 12/31/21 04:40 Specimen Type Clean catch urine 12/30/21 09:55 Urine Color Pale yellow (YELLOW) 12/30/21 09:55 Urine Appearance Clear (CLEAR) 12/30/21 09:55 Urine pH 6.0 (5.0 - 8.0) 12/30/21 09:55 Ur Specific [place] 1.020 (1.000-1.030) 12/30/21 09:55 Urine Protein Negative (NEGATIVE) 12/30/21 09:55 Urine Glucose (UA) Negative (NEGATIVE) 12/30/21 09:55 Urine Ketones Negative (NEGATIVE) 12/30/21 09:55 Urine Blood 1+ (NEGATIVE) 12/30/21 09:55 Urine Nitrite Negative (NEGATIVE) 12/30/21 09:55 Urine Bilirubin Negative (NEGATIVE) 12/30/21 09:55 Urine Urobilinogen Normal (NORMAL) 12/30/21 09:55 Ur Leukocyte Esterase Negative (NEGATIVE) 12/30/21 09:55 Urine RBC 0-2 /HPF (0-3) 12/30/21 09:55 Urine WBC 0-2 /HPF (0-5) 12/30/21 09:55 Ur Squamous Epith Cells Rare /HPF (NEGATIVE) 12/30/21 09:55 Urine Bacteria Trace /HPF (NEGATIVE) 12/30/21 09:55 Hyaline Casts Few /LPF (NEGATIVE) 12/30/21 09:55 Ur Culture Indicated? No/not indicated 12/30/21 09:55 SARS-CoV-2 (PCR) Negative (NEGATIVE) 12/30/21 08:08 Influenza Type A (PCR) Negative (NEGATIVE) 12/30/21 08:08 Influenza Type B (PCR) Negative (NEGATIVE) 12/30/21 08:08 RSV (PCR) Negative (NEGATIVE) 12/30/21 08:08 Plan (1) Pneumonia: Status: Acute (2) Pulmonary fibrosis: Status: Acute (3) Hypoxia: Status: Acute (4) Anemia: Status: Acute (5) HTN (hypertension): Status: Acute (6) DDD (degenerative disc disease): Status: Acute (7) Anxiety: Status: Acute (8) Insomnia: Status: Acute
[2022-01-01] MEDS ORDERED: PREDNISONE TAB 20 MG PO SCH (11:25)
[2022-01-01] MEDS ORDERED: ANTIVERT TAB 25 MG PO ONE (13:54)
[2022-01-01] MEDS ORDERED: ANTIVERT TAB 25 MG ONE (17:01)
[2022-01-01] MEDS: RESTORIL CAP 15 MG PO PRN (20:32)
[2022-01-01] MEDS: COLACE CAP 100 MG PO SCH (20:32)
[2022-01-01] MEDS: MILK OF MAGNESIA PO SCH (20:32)
[2022-01-01] MEDS: ZOCOR TAB 10 MG PO SCH (20:33)
[2022-01-01] MEDS: XANAX PO PRN (22:15)
[2022-01-02 04:37] LABS: BASOPHILS % (AUTO) 0.1 % (0.2-1.0); EOSINOPHILS % (AUTO) 0.2 % (0.9-2.9); HEMOGLOBIN 10.7 g/dL (12.0-16.0); LYMPHOCYTES % (AUTO) 9.6 % (21.0-51.0); MEAN CORPUSCULAR HEMOGLOBIN 31.2 pg (27.0-34.0); MEAN CORPUSCULAR HGB CONC 34.4 g/dL (33.0-35.0); MEAN CORPUSCULAR VOLUME 90.7 fL (80.0-100.0); MEAN PLATELET VOLUME 7.9 fL (7.4-11.0); MONOCYTES # (AUTO) 0.5 x10^3/uL (0.3-0.8); NEUTROPHILS # (AUTO) 9.1 x10^3/uL (2.2-4.8); NEUTROPHILS % (AUTO) 85.1 % (42.0-75.0); RED BLOOD COUNT 3.42 X10^6/uL (3.5-5.4); WHITE BLOOD COUNT 10.7 X10^3/uL (3.6-10.0)
[2022-01-02 04:41] LABS: BLOOD UREA NITROGEN 24 mg/dL (7-18); CARBON DIOXIDE 31.2 mmol/L (21-32); CHLORIDE 102 mmol/L (98-107); COR NA(FOR HYPERGLY) 139 mmol/L (136-145); CREATININE 0.78 mg/dL (0.55-1.02); SODIUM 138 mmol/L (136-145); eGFR NON BLACK RACES > 60 (>60)
[2022-01-02] MEDS: DUONEB 0.5 MG/3 MG (3 mL) NEB SCH ×3 (05:20→17:40)
[2022-01-02] MEDS: NEURONTIN CAP 400 MG PO SCH ×3 (05:45→21:23)
[2022-01-02] MEDS: ZITHROMAX INJ 500 MG VIAL 250 MG in NS 250 ML IV 250 ML IV SCH (08:08)
[2022-01-02] MEDS: DIOVAN TAB 80 MG PO SCH (08:15)
[2022-01-02] MEDS: ROCEPHIN VIAL 1 GRAM 1 G in NS 100 ML IV 100 ML IV SCH (08:16)
[2022-01-02] MEDS: PROzac PO SCH ×2 (08:16→20:04)
[2022-01-02] MEDS: SOLU-Medrol 40 MG VIAL IVP SCH ×3 (08:20→21:24)
[2022-01-02] MEDS: PULMICORT NEB TX 0.5 MG NEB SCH ×2 (09:35→20:18)
[2022-01-02] MEDS ORDERED: TESSALON PERLES PO PRN (10:52)
--- NOTE | 2022-01-02 10:52 | PCM.PROG ---
Progress Note Progress Note for Day of Date of Exam: 01/02/22 Subjective Subjective: Patient seen at bedside, no events overnight. She states she still has a lot of cough and dyspnea with walking. She was feeling dizzy yesterday when standing up. Ortho static vitals were normal. She was given meclizine and states it helped. She is currently on 3L NC. Denies N/V/D. Labs/imaging reviewed: Hgb 10.7 WBC 10.7 CTA-chest: no PE, fibrosis noted Sputum: Gram (-) rods Blood cx (-) Plan: will repeat CXR, switch prednisone to solumedrol. Wean O2 as tolerated to keep sats > 92%. PT/OT as tolerated. Encouraged patient to use IS and ambulate as tolerated. Continue IV Rocephin and Azithromycin. RT consult for home O2 eval. Continue nebs and pulmicort. Continue anti-tussives. Follow pending cultures. Monitor AM labs/imaging. Past Medical Family Social History Allergies: Allergies No Known Drug Allergies Allergy (Verified 12/30/21 10:08) Vital Signs and I&O's Vital Signs: Temperature 98.4 F Pulse Rate [Left Brachial] 66 Pulse Rate 65 Respiratory Rate 20 Blood Pressure [Right Arm] 145/72 Blood Pressure [Left Arm] 125/59 Blood Pressure 181/77 O2 Sat by Pulse Oximetry 94 Intake and Output: Intake & Output 12/30/21 12/31/21 01/01/22 01/02/22 23:59 23:59 23:59 23:59 Intake Total 1000 / 1000 1367 / 1367 2540 / 2540 420 / 420 Balance 1000 / 1000 1367 / 1367 2540 / 2540 420 / 420 Physical Exam Oriented: Normal Eyes: Normal Ear: Normal Nose: Normal Throat: Normal Respiratory: Generalized, Wheezes and Rales Cardiovascular: Normal Auscultation: Bowel Sounds: Normal Tenderness: Normal Skin: Normal Musculoskeletal: Back:Thoracic, Back:Lumbar, Back:Midline and Back:Paraspinous Psychiatric: Normal Mood Description: Calm Affect: Normal Speech Pattern: Clear and Appropriate Laboratory and Diagnostics Result Diagrams: 01/02/22 04:05 01/02/22 04:05 Labs: 12/31/21 06:57 Sputum - Expectorated Sputum Sputum Culture - Final Klebsiella Pneumoniae 12/31/21 06:57 Sputum - Expectorated Sputum - Final 12/30/21 12:05 Blood Blood Culture - Preliminary 12/30/21 11:48 Blood Blood Culture - Preliminary Laboratory WBC 10.7 X10^3/uL (3.6-10.0) H 01/02/22 04:05 RBC 3.42 X10^6/uL (3.5-5.4) L 01/02/22 04:05 Hgb 10.7 g/dL (12.0-16.0) L 01/02/22 04:05 Hct 31.0 % (36.0-47.0) L 01/02/22 04:05 MCV 90.7 fL (80.0-100.0) 01/02/22 04:05 MCH 31.2 pg (27.0-34.0) 01/02/22 04:05 MCHC 34.4 g/dL (33.0-35.0) 01/02/22 04:05 RDW 14.0 % (11.6-16.5) 01/02/22 04:05 Plt Count 354 X10^3/uL (150.0-450.0) 01/02/22 04:05 Plt Count Comment Adequate (ADEQUATE) 12/31/21 04:40 MPV 7.9 fL (7.4-11.0) 01/02/22 04:05 Neut % (Auto) 85.1 % (42.0-75.0) H 01/02/22 04:05 Lymph % (Auto) 9.6 % (21.0-51.0) L 01/02/22 04:05 [place] % (Auto) 5.0 % (0.0-13.0) 01/02/22 04:05 Eos % (Auto) 0.2 % (0.9-2.9) L 01/02/22 04:05 Baso % (Auto) 0.1 % (0.2-1.0) L 01/02/22 04:05 Neut # (Auto) 9.1 x10^3/uL (2.2-4.8) H 01/02/22 04:05 Lymph # (Auto) 1.0 X10^3/uL (1.3-2.9) L 01/02/22 04:05 [place] # (Auto) 0.5 x10^3/uL (0.3-0.8) 01/02/22 04:05 Eos # (Auto) 0.0 x10^3/uL (0.0-0.2) 01/02/22 04:05 Baso # (Auto) 0.0 X10^3/uL (0.0-0.1) 01/02/22 04:05 Absolute Nucleated RBC 0.0 /100WBC 01/02/22 04:05 Total Counted 100 12/31/21 04:40 Neutrophils % (Manual) 93 % (39-76) H 12/31/21 04:40 Lymphocytes % (Manual) 4 % (13-43) L 12/31/21 04:40 Monocytes % (Manual) 3 % (4-9) L 12/31/21 04:40 Plt Morphology Comment Normal (NORMAL) 12/31/21 04:40 RBC Morphology Normal (NORMAL) 12/31/21 04:40 Sample Site Lb 12/30/21 11:18 ABG pH 7.410 (7.35-7.45) 12/30/21 11:18 ABG pCO2 40.0 mmHg (35.0-45.0) 12/30/21 11:18 ABG pO2 47.0 mmHg (80.0-100.0) L* 12/30/21 11:18 ABG HCO3 25.4 mmol/L (22-26) 12/30/21 11:18 ABG O2 Saturation 83.0 % (90-100) L* 12/30/21 11:18 ABG Base Excess 0.7 mmol/L (-2.0-2.0) 12/30/21 11:18 [place] Test N/a 12/30/21 11:18 A-a Gradient 53.0 mmHg 12/30/21 11:18 FiO2 21.0 12/30/21 11:18 Blood Gas Comments Pt macey well elj 12/30/21 11:18 Sodium 138 mmol/L (136-145) 01/02/22 04:05 Corrected Sodium 139 mmol/L (136-145) 01/02/22 04:05 Potassium 4.5 mmol/L (3.5-5.1) 01/02/22 04:05 Chloride 102 mmol/L (98-107) 01/02/22 04:05 Carbon Dioxide 31.2 mmol/L (21-32) 01/02/22 04:05 BUN 24 mg/dL (7-18) H 01/02/22 04:05 Creatinine 0.78 mg/dL (0.55-1.02) 01/02/22 04:05 Est GFR (MDRD) Af Amer > 60 (>60) 01/02/22 04:05 Est GFR (MDRD) Non-Af > 60 (>60) 01/02/22 04:05 Glucose 139 mg/dL (65-99) H 01/02/22 04:05 Calcium 9.0 mg/dL (8.5-10.1) 01/02/22 04:05 Corrected Calcium 10.0 mg/dL (8.5-10.1) 12/31/21 04:40 Total Bilirubin 0.20 mg/dL (0.2-1.0) 12/31/21 04:40 AST 18 Units/L (15-37) 12/31/21 04:40 ALT 37 Units/L (12-78) 12/31/21 04:40 Alkaline Phosphatase 92 Units/L (46-116) 12/31/21 04:40 Creatine Kinase 124 Units/L (26-192) 12/30/21 08:10 CK-MB (CK-2) 2.6 ng/mL (0-4.0) 12/30/21 08:10 CK/CKMB % Calc 2.1 % (<4) 12/30/21 08:10 Troponin I High Sens 4.8 ng/L (4.0-60.0) 12/30/21 08:10 Total Protein 6.6 g/dL (6.4-8.2) 12/31/21 04:40 Albumin 2.4 g/dL (3.4-5.0) L 12/31/21 04:40 Globulin 4.2 g/dL (2.5-4.5) 12/31/21 04:40 Albumin/Globulin Ratio 0.6 Ratio (1.1-2.1) L 12/31/21 04:40 Specimen Type Clean catch urine 12/30/21 09:55 Urine Color Pale yellow (YELLOW) 12/30/21 09:55 Urine Appearance Clear (CLEAR) 12/30/21 09:55 Urine pH 6.0 (5.0 - 8.0) 12/30/21 09:55 Ur Specific [place] 1.020 (1.000-1.030) 12/30/21 09:55 Urine Protein Negative (NEGATIVE) 12/30/21 09:55 Urine Glucose (UA) Negative (NEGATIVE) 12/30/21 09:55 Urine Ketones Negative (NEGATIVE) 12/30/21 09:55 Urine Blood 1+ (NEGATIVE) 12/30/21 09:55 Urine Nitrite Negative (NEGATIVE) 12/30/21 09:55 Urine Bilirubin Negative (NEGATIVE) 12/30/21 09:55 Urine Urobilinogen Normal (NORMAL) 12/30/21 09:55 Ur Leukocyte Esterase Negative (NEGATIVE) 12/30/21 09:55 Urine RBC 0-2 /HPF (0-3) 12/30/21 09:55 Urine WBC 0-2 /HPF (0-5) 12/30/21 09:55 Ur Squamous Epith Cells Rare /HPF (NEGATIVE) 12/30/21 09:55 Urine Bacteria Trace /HPF (NEGATIVE) 12/30/21 09:55 Hyaline Casts Few /LPF (NEGATIVE) 12/30/21 09:55 Ur Culture Indicated? No/not indicated 12/30/21 09:55 SARS-CoV-2 (PCR) Negative (NEGATIVE) 12/30/21 08:08 Influenza Type A (PCR) Negative (NEGATIVE) 12/30/21 08:08 Influenza Type B (PCR) Negative (NEGATIVE) 12/30/21 08:08 RSV (PCR) Negative (NEGATIVE) 12/30/21 08:08 Plan (1) Pneumonia: Status: Acute (2) COPD exacerbation: Status: Acute (3) Pulmonary fibrosis: Status: Acute (4) Hypoxia: Status: Acute (5) Anemia: Status: Acute (6) HTN (hypertension): Status: Acute (7) DDD (degenerative disc disease): Status: Acute (8) Anxiety: Status: Acute (9) Insomnia: Status: Acute
[2022-01-02] MEDS: NORCO 7.5/325 MG TAB PO PRN (17:22)
[2022-01-02] MEDS: ZOCOR TAB 10 MG PO SCH (20:04)
[2022-01-02] MEDS: MILK OF MAGNESIA PO SCH (20:04)
[2022-01-02] MEDS: COLACE CAP 100 MG PO SCH (20:04)
[2022-01-02] MEDS: XANAX PO PRN (20:05)
[2022-01-02] MEDS: RESTORIL CAP 15 MG PO PRN (20:05)
[2022-01-03] MEDS: DUONEB 0.5 MG/3 MG (3 mL) NEB SCH ×3 (00:30→12:12)
[2022-01-03] MEDS: NORCO 7.5/325 MG TAB PO PRN (04:41)
[2022-01-03] MEDS: NEURONTIN CAP 400 MG PO SCH ×2 (05:33→13:13)
[2022-01-03] MEDS: SOLU-Medrol 40 MG VIAL IVP SCH ×2 (05:33→13:13)
[2022-01-03 06:09] LABS: BLOOD UREA NITROGEN 21 mg/dL (7-18); CALCIUM 9.1 mg/dL (8.5-10.1); CARBON DIOXIDE 28.2 mmol/L (21-32); CHLORIDE 101 mmol/L (98-107); COR NA(FOR HYPERGLY) 137 mmol/L (136-145); CREATININE 0.78 mg/dL (0.55-1.02); SODIUM 136 mmol/L (136-145); eGFR NON BLACK RACES > 60 (>60)
[2022-01-03 06:17] LABS: BASOPHILS % (AUTO) 0.2 % (0.2-1.0); HEMOGLOBIN 11.1 g/dL (12.0-16.0); LYMPHOCYTES # (AUTO) 0.9 X10^3/uL (1.3-2.9); LYMPHOCYTES % (AUTO) 7.2 % (21.0-51.0); MEAN CORPUSCULAR HEMOGLOBIN 31.1 pg (27.0-34.0); MEAN CORPUSCULAR HGB CONC 33.7 g/dL (33.0-35.0); MEAN CORPUSCULAR VOLUME 92.2 fL (80.0-100.0); MEAN PLATELET VOLUME 8.2 fL (7.4-11.0); MONOCYTES # (AUTO) 0.3 x10^3/uL (0.3-0.8); MONOCYTES % (AUTO) 2.8 % (0.0-13.0); NEUTROPHILS # (AUTO) 10.9 x10^3/uL (2.2-4.8); NEUTROPHILS % (AUTO) 89.8 % (42.0-75.0); RED BLOOD COUNT 3.58 X10^6/uL (3.5-5.4); RED CELL DISTRIBUTION WIDTH 14.2 % (11.6-16.5); WHITE BLOOD COUNT 12.2 X10^3/uL (3.6-10.0)
--- NOTE | 2022-01-03 07:47 | RAD ---
HISTORYHypoxiaSTUDYPortable AP [id number] size is normal. There is improvement in the right-sided pulmonary infiltrate with residual interstitial prominence bilaterally. No new areas of consolidation or pleural fluid accumulation identified.IMPRESSIONInterval improvement in the right-sided infiltrate. Residual interstitial changes may represent persistent inflammatory process or a more chronic baseline fibrosis. Continued follow-up suggested to establish stability.Electronically signed by: DANY GOMEZ (Jan 03, 2022 07:46:37)
[2022-01-03] MEDS: PULMICORT NEB TX 0.5 MG NEB SCH (08:55)
[2022-01-03] MEDS: ROCEPHIN VIAL 1 GRAM 1 G in NS 100 ML IV 100 ML IV SCH (09:16)
[2022-01-03] MEDS: DIOVAN TAB 80 MG PO SCH (09:17)
[2022-01-03] MEDS: PROzac PO SCH (09:18)
[2022-01-03] MEDS: ZITHROMAX INJ 500 MG VIAL 250 MG in NS 250 ML IV 250 ML IV SCH (09:25)
[2022-01-03 12:26] VITALS: BP 161/77
[2022-01-03] MEDS ORDERED: NAPROSYN PO ONE (12:31)
--- NOTE | 2022-01-03 14:24 | W.DIS.FURT ---
Summary of Discharge Discharge Summary of Date Date of Exam: 01/03/22 Admission Date Date of Admission: 12/30/21 Admission Diagnosis Patient Problems (Updated 01/04/22 @ 10:02 by Catherine Stein) Pneumonia (Acute) J18.9 Hypoxia (Acute) R09.02 Hospital Course: Ms Lofton is a 66y/o female with a PMH of COPD, chronic pain disorder due to DDD, anxiety/depression, insomnia and HTN presented with worsening shortness of breath, cough and dizziness. She reports having a fall on and feeling sick since then. ER wokr-up included CXR which showed right lung infiltrate. Cardiac enzymes were negative. CT-brain did not show any acute process. Patient's ABG showed significant hypoxia and she was requiring 2L O2 via NC. Patient was started on IV Rocephin and azithromycin and admitted for pneumonia and respiratory failure.Her COVID test was negative. She was also started on nebs and pulmicort. CTA was done which did not show PE but did show peripheral pulmonary fibrosis. Patient as still having some wheezing and exertional dyspnea. She was started on IV steroids. PT/OT was also consulted and patient was ambulating in the room. Her recent CXR showed improvement in right infiltrate. RT evaluated for home O2 and patient will need 2L Oxygen. She was stable for discharge. Patient will follow up with PCP and referred to Pulmonary. She was discharged on oral levaquin, prednisone, nebs and albuterol. Patient's sedative medications including xanax, clonopin and restoril were discussed with patient. Patient was told about the side effects of taking those medications together. She will discuss it with her PCP. She was stable for discharge. Vital Signs: Vital Signs (72 hours) 12/31/21 15:44 12/31/21 19:00 12/31/21 20:51 Temperature 98.3 F Pulse Rate Pulse Rate [Left Brachial] 71 Respiratory Rate 20 18 Blood Pressure [Left Arm] 123/65 Blood Pressure [Right Arm] O2 Sat by Pulse Oximetry 97 Oxygen Delivery Method Nasal Cannula Nasal Cannula Oxygen Flow Rate 2 2 FIO2% 12/31/21 20:00 12/31/21 20:00 12/31/21 20:00 Temperature 98.7 F Pulse Rate 68 Pulse Rate [Left Brachial] 74 Respiratory Rate 22 Blood Pressure [Left Arm] 129/59 Blood Pressure [Right Arm] O2 Sat by Pulse Oximetry 95 95 Oxygen Delivery Method Nasal Cannula Nasal Cannula Oxygen Flow Rate 2 2 FIO2% 28 12/31/21 21:51 01/01/22 00:00 01/01/22 04:00 Temperature 98.3 F 98.4 F Pulse Rate Pulse Rate [Left Brachial] 66 75 Respiratory Rate 20 20 20 Blood Pressure [Left Arm] Blood Pressure [Right Arm] 165/80 O2 Sat by Pulse Oximetry 95 96 Oxygen Delivery Method Nasal Cannula Nasal Cannula Oxygen Flow Rate 2 2 FIO2% 01/01/22 07:00 01/01/22 08:37 01/01/22 08:00 Temperature 98.2 F Pulse Rate Pulse Rate [Left Brachial] 68 Respiratory Rate 20 20 Blood Pressure [Left Arm] Blood Pressure [Right Arm] 145/72 O2 Sat by Pulse Oximetry 93 L Oxygen Delivery Method Nasal Cannula Nasal Cannula Oxygen Flow Rate 2 2 FIO2% 01/01/22 09:37 01/01/22 09:00 01/01/22 09:00 Temperature Pulse Rate 70 Pulse Rate [Left Brachial] Respiratory Rate 20 Blood Pressure [Left Arm] Blood Pressure [Right Arm] O2 Sat by Pulse Oximetry 95 Oxygen Delivery Method Nasal Cannula Oxygen Flow Rate 2 FIO2% 28 01/01/22 12:00 01/01/22 13:52 01/01/22 13:52 Temperature 98.7 F Pulse Rate Pulse Rate [Left Brachial] 60 68 82 Respiratory Rate 23 Blood Pressure [Left Arm] 126/63 120/68 127/68 Blood Pressure [Right Arm] O2 Sat by Pulse Oximetry 94 L Oxygen Delivery Method Nasal Cannula Oxygen Flow Rate 2 FIO2% 01/01/22 13:52 01/01/22 16:00 01/01/22 19:29 Temperature 98.5 F 98.4 F Pulse Rate Pulse Rate [Left Brachial] 72 72 80 Respiratory Rate 20 20 Blood Pressure [Left Arm] 160/71 120/68 137/63 Blood Pressure [Right Arm] O2 Sat by Pulse Oximetry 93 L 94 L Oxygen Delivery Method Nasal Cannula Nasal Cannula Oxygen Flow Rate 2 2 FIO2% 01/01/22 19:00 01/01/22 20:34 01/01/22 21:30 Temperature Pulse Rate Pulse Rate [Left Brachial] Respiratory Rate 20 Blood Pressure [Left Arm] Blood Pressure [Right Arm] O2 Sat by Pulse Oximetry Oxygen Delivery Method Nasal Cannula Nasal Cannula Oxygen Flow Rate 2 2 FIO2% 28 01/01/22 22:00 01/01/22 22:00 01/01/22 21:34 Temperature Pulse Rate 65 Pulse Rate [Left Brachial] Respiratory Rate 20 Blood Pressure [Left Arm] Blood Pressure [Right Arm] O2 Sat by Pulse Oximetry 98 Oxygen Delivery Method Nasal Cannula Oxygen Flow Rate 3 FIO2% 32 01/01/22 22:34 01/02/22 00:00 01/02/22 03:57 Temperature 97.6 F 97.9 F Pulse Rate Pulse Rate [Left Brachial] 72 61 Respiratory Rate 20 18 18 Blood Pressure [Left Arm] 119/57 129/67 Blood Pressure [Right Arm] O2 Sat by Pulse Oximetry 95 97 Oxygen Delivery Method Nasal Cannula Nasal Cannula Oxygen Flow Rate 2 2 FIO2% 01/02/22 07:00 01/02/22 08:00 01/02/22 12:00 Temperature 98.4 F 98.3 F Pulse Rate Pulse Rate [Left Brachial] 66 72 Respiratory Rate 20 20 Blood Pressure [Left Arm] 125/59 141/65 Blood Pressure [Right Arm] O2 Sat by Pulse Oximetry 94 L 90 L Oxygen Delivery Method Nasal Cannula Nasal Cannula Nasal Cannula Oxygen Flow Rate 2 2 2 FIO2% 01/02/22 09:35 01/02/22 09:35 01/02/22 16:00 Temperature 98.6 F Pulse Rate 66 Pulse Rate [Left Brachial] 78 Respiratory Rate 20 Blood Pressure [Left Arm] 128/60 Blood Pressure [Right Arm] O2 Sat by Pulse Oximetry 95 93 L Oxygen Delivery Method Nasal Cannula Nasal Cannula Oxygen Flow Rate 3 2 FIO2% 32 01/02/22 17:22 01/02/22 18:22 01/02/22 19:00 Temperature Pulse Rate Pulse Rate [Left Brachial] Respiratory Rate 20 20 Blood Pressure [Left Arm] Blood Pressure [Right Arm] O2 Sat by Pulse Oximetry Oxygen Delivery Method Nasal Cannula Oxygen Flow Rate 2 FIO2% 01/02/22 20:00 01/02/22 20:18 01/02/22 20:18 Temperature 97.8 F Pulse Rate 64 Pulse Rate [Left Brachial] 64 Respiratory Rate 18 Blood Pressure [Left Arm] 148/69 Blood Pressure [Right Arm] O2 Sat by Pulse Oximetry 98 94 L Oxygen Delivery Method Nasal Cannula Nasal Cannula Oxygen Flow Rate 2 3 FIO2% 32 01/03/22 00:00 01/03/22 04:41 01/03/22 04:00 Temperature 98.4 F 98.4 F Pulse Rate Pulse Rate [Left Brachial] 65 66 Respiratory Rate 18 20 18 Blood Pressure [Left Arm] 141/70 147/68 Blood Pressure [Right Arm] O2 Sat by Pulse Oximetry 96 92 L Oxygen Delivery Method Nasal Cannula Nasal Cannula Oxygen Flow Rate 2 2 FIO2% 01/03/22 05:41 01/03/22 07:00 01/03/22 08:00 Temperature 97.9 F Pulse Rate Pulse Rate [Left Brachial] 77 Respiratory Rate 20 18 Blood Pressure [Left Arm] 126/66 Blood Pressure [Right Arm] O2 Sat by Pulse Oximetry 97 Oxygen Delivery Method Nasal Cannula Nasal Cannula Oxygen Flow Rate 3 2 FIO2% 01/03/22 08:55 01/03/22 08:55 01/03/22 12:13 Temperature Pulse Rate 81 Pulse Rate [Left Brachial] Respiratory Rate Blood Pressure [Left Arm] Blood Pressure [Right Arm] O2 Sat by Pulse Oximetry 94 L Oxygen Delivery Method Nasal Cannula Nasal Cannula Oxygen Flow Rate 3 2 FIO2% 32 28 01/03/22 12:13 01/03/22 12:00 Temperature 98.0 F Pulse Rate 84 Pulse Rate [Left Brachial] 70 Respiratory Rate 20 Blood Pressure [Left Arm] 161/77 Blood Pressure [Right Arm] O2 Sat by Pulse Oximetry 96 97 Oxygen Delivery Method Nasal Cannula Oxygen Flow Rate 2 FIO2% Labs: Laboratory Last Values WBC 12.2 X10^3/uL (3.6-10.0) H 01/03/22 05:24 RBC 3.58 X10^6/uL (3.5-5.4) 01/03/22 05:24 Hgb 11.1 g/dL (12.0-16.0) L 01/03/22 05:24 Hct 33.0 % (36.0-47.0) L 01/03/22 05:24 MCV 92.2 fL (80.0-100.0) 01/03/22 05:24 MCH 31.1 pg (27.0-34.0) 01/03/22 05:24 MCHC 33.7 g/dL (33.0-35.0) 01/03/22 05:24 RDW 14.2 % (11.6-16.5) 01/03/22 05:24 Plt Count 383 X10^3/uL (150.0-450.0) 01/03/22 05:24 Plt Count Comment Adequate (ADEQUATE) 12/31/21 04:40 MPV 8.2 fL (7.4-11.0) 01/03/22 05:24 Neut % (Auto) 89.8 % (42.0-75.0) H 01/03/22 05:24 Lymph % (Auto) 7.2 % (21.0-51.0) L 01/03/22 05:24 [place] % (Auto) 2.8 % (0.0-13.0) 01/03/22 05:24 Eos % (Auto) 0.0 % (0.9-2.9) L 01/03/22 05:24 Baso % (Auto) 0.2 % (0.2-1.0) 01/03/22 05:24 Neut # (Auto) 10.9 x10^3/uL (2.2-4.8) H 01/03/22 05:24 Lymph # (Auto) 0.9 X10^3/uL (1.3-2.9) L 01/03/22 05:24 [place] # (Auto) 0.3 x10^3/uL (0.3-0.8) 01/03/22 05:24 Eos # (Auto) 0.0 x10^3/uL (0.0-0.2) 01/03/22 05:24 Baso # (Auto) 0.0 X10^3/uL (0.0-0.1) 01/03/22 05:24 Absolute Nucleated RBC 0.0 /100WBC 01/03/22 05:24 Total Counted 100 12/31/21 04:40 Neutrophils % (Manual) 93 % (39-76) H 12/31/21 04:40 Lymphocytes % (Manual) 4 % (13-43) L 12/31/21 04:40 Monocytes % (Manual) 3 % (4-9) L 12/31/21 04:40 Plt Morphology Comment Normal (NORMAL) 12/31/21 04:40 RBC Morphology Normal (NORMAL) 12/31/21 04:40 Sample Site Lbra 12/30/21 11:18 ABG pH 7.410 (7.35-7.45) 12/30/21 11:18 ABG pCO2 40.0 mmHg (35.0-45.0) 12/30/21 11:18 ABG pO2 47.0 mmHg (80.0-100.0) L* 12/30/21 11:18 ABG HCO3 25.4 mmol/L (22-26) 12/30/21 11:18 ABG O2 Saturation 83.0 % (90-100) L* 12/30/21 11:18 ABG Base Excess 0.7 mmol/L (-2.0-2.0) 12/30/21 11:18 [place] Test N/a 12/30/21 11:18 A-a Gradient 53.0 mmHg 12/30/21 11:18 FiO2 21.0 12/30/21 11:18 Blood Gas Comments Pt macey well elj 12/30/21 11:18 Sodium 136 mmol/L (136-145) 01/03/22 05:24 Corrected Sodium 137 mmol/L (136-145) 01/03/22 05:24 Potassium 4.3 mmol/L (3.5-5.1) 01/03/22 05:24 Chloride 101 mmol/L (98-107) 01/03/22 05:24 Carbon Dioxide 28.2 mmol/L (21-32) 01/03/22 05:24 BUN 21 mg/dL (7-18) H 01/03/22 05:24 Creatinine 0.78 mg/dL (0.55-1.02) 01/03/22 05:24 Est GFR (MDRD) Af Amer > 60 (>60) 01/03/22 05:24 Est GFR (MDRD) Non-Af > 60 (>60) 01/03/22 05:24 Glucose 149 mg/dL (65-99) H 01/03/22 05:24 Calcium 9.1 mg/dL (8.5-10.1) 01/03/22 05:24 Corrected Calcium 10.0 mg/dL (8.5-10.1) 12/31/21 04:40 Total Bilirubin 0.20 mg/dL (0.2-1.0) 12/31/21 04:40 AST 18 Units/L (15-37) 12/31/21 04:40 ALT 37 Units/L (12-78) 12/31/21 04:40 Alkaline Phosphatase 92 Units/L (46-116) 12/31/21 04:40 Creatine Kinase 124 Units/L (26-192) 12/30/21 08:10 CK-MB (CK-2) 2.6 ng/mL (0-4.0) 12/30/21 08:10 CK/CKMB % Calc 2.1 % (<4) 12/30/21 08:10 Troponin I High Sens 4.8 ng/L (4.0-60.0) 12/30/21 08:10 Total Protein 6.6 g/dL (6.4-8.2) 12/31/21 04:40 Albumin 2.4 g/dL (3.4-5.0) L 12/31/21 04:40 Globulin 4.2 g/dL (2.5-4.5) 12/31/21 04:40 Albumin/Globulin Ratio 0.6 Ratio (1.1-2.1) L 12/31/21 04:40 Specimen Type Clean catch urine 12/30/21 09:55 Urine Color Pale yellow (YELLOW) 12/30/21 09:55 Urine Appearance Clear (CLEAR) 12/30/21 09:55 Urine pH 6.0 (5.0 - 8.0) 12/30/21 09:55 Ur Specific [place] 1.020 (1.000-1.030) 12/30/21 09:55 Urine Protein Negative (NEGATIVE) 12/30/21 09:55 Urine Glucose (UA) Negative (NEGATIVE) 12/30/21 09:55 Urine Ketones Negative (NEGATIVE) 12/30/21 09:55 Urine Blood 1+ (NEGATIVE) 12/30/21 09:55 Urine Nitrite Negative (NEGATIVE) 12/30/21 09:55 Urine Bilirubin Negative (NEGATIVE) 12/30/21 09:55 Urine Urobilinogen Normal (NORMAL) 12/30/21 09:55 Ur Leukocyte Esterase Negative (NEGATIVE) 12/30/21 09:55 Urine RBC 0-2 /HPF (0-3) 12/30/21 09:55 Urine WBC 0-2 /HPF (0-5) 12/30/21 09:55 Ur Squamous Epith Cells Rare /HPF (NEGATIVE) 12/30/21 09:55 Urine Bacteria Trace /HPF (NEGATIVE) 12/30/21 09:55 Hyaline Casts Few /LPF (NEGATIVE) 12/30/21 09:55 Ur Culture Indicated? No/not indicated 12/30/21 09:55 SARS-CoV-2 (PCR) Negative (NEGATIVE) 12/30/21 08:08 Influenza Type A (PCR) Negative (NEGATIVE) 12/30/21 08:08 Influenza Type B (PCR) Negative (NEGATIVE) 12/30/21 08:08 RSV (PCR) Negative (NEGATIVE) 12/30/21 08:08 Reason For Visit: PNEUMONIA, HYPOXIA Discharge Date Discharge Date: 01/03/22 Discharge Diagnosis All Active Problems (Updated 01/04/22 @ 10:02 by Catherine Stein) COPD exacerbation (Acute) Pulmonary fibrosis (Acute) Insomnia (Chronic) Anxiety (Chronic) DDD (degenerative disc disease) (Chronic) HTN (hypertension) (Chronic) Anemia (Acute) Pneumonia (Acute) Hypoxia (Acute) Plan of Treatment: Continue with present treatment and follow up plan. Pt is to keep follow up appointment as instructed and take medications as ordered. Discharge Medications Discharge Medications: No Known Drug Allergies Allergy (Verified 12/30/21 10:08) CONTINUE taking the following medications alprazolam 0.5 mg tablet 1 tab PO BID PRN 12/30/21 [History] clonazepam 1 mg tablet 1 tab PO QPM PRN 12/30/21 [History] fluoxetine 20 mg capsule 3 cap PO QPM 12/30/21 [History] gabapentin 400 mg capsule 1 cap PO TID 12/30/21 [History] hydrocodone 7.5 mg-acetaminophen 325 mg tablet 1 tab PO BID PRN 12/30/21 [History] ibuprofen 800 mg tablet 1 tab PO TID PRN 12/30/21 [History] simvastatin 10 mg tablet 1 tab PO QPM 12/30/21 [History] temazepam 30 mg capsule 1 cap PO QPM PRN 12/30/21 [History] valsartan 40 mg tablet 1 tab PO QDAY 12/30/21 [History] New Prescriptions albuterol sulfate 1.25 mg/3 mL solution for nebulization 1.25 mg (3 mL) inhalation Q4H PRN Shortness Of Breath 10 days #30 mL 01/03/22 [Rx] ipratropium 0.5 mg-albuterol 3 mg (2.5 mg base)/3 mL nebulization soln 3 ml NEB Q4H PRN #30 mL 01/03/22 [Rx] levofloxacin 750 mg tablet 750 mg PO QDAY 5 days #5 tabs 01/03/22 [Rx] prednisone 20 mg tablet 40 mg PO QDAY 5 days #5 tabs 01/03/22 [Rx] Discharge Disposition Discharge Disposition: Home Discharge Condition: Stable Discharge Plan Discharge Plan Hospital Course: Ms Lofton is a 66y/o female with a PMH of COPD, chronic pain disorder due to DDD, anxiety/depression, insomnia and HTN presented with worsening shortness of breath, cough and dizziness. She reports having a fall on and feeling sick since then. ER wokr-up included CXR which showed right lung infiltrate. Cardiac enzymes were negative. CT-brain did not show any acute process. Patient's ABG showed significant hypoxia and she was requiring 2L O2 via NC. Patient was started on IV Rocephin and azithromycin and admitted for pneumonia and respiratory failure.Her COVID test was negative. She was also started on nebs and pulmicort. CTA was done which did not show PE but did show peripheral pulmonary fibrosis. Patient as still having some wheezing and exertional dyspnea. She was started on IV steroids. PT/OT was also consulted and patient was ambulating in the room. Her recent CXR showed improvement in right infiltrate. RT evaluated for home O2 and patient will need 2L Oxygen. She was stable for discharge. Patient will follow up with PCP and referred to Pulmonary. She was discharged on oral levaquin, prednisone, nebs and albuterol. Patient's sedative medications including xanax, clonopin and restoril were discussed with patient. Patient was told about the side effects of taking those medications together. She will discuss it with her PCP. She was stable for discharge. Patient Disposition: HOME, SELF-CARE Condition: Stable Health Concerns: Post Hospitalization: new medications and changes needed to prevent readmission or further decline. Pt educated and given instructions on all concerns. Care Plan Goals: Problem: Respiratory Complications Goal: Improved Uncomplicated Respiratory Status Instructions: Follow provided instructions. Follow up with primary physician as directed. Contact primary care physician or report to the closest Emergency Room if condition worsens. Plan of Treatment: Continue with present treatment and follow up plan. Pt is to keep follow up appointment as instructed and take medications as ordered. Prescription drug monitoring program results: PDMP reviewed and no concerns identified Prescriptions: New albuterol sulfate 1.25 mg/3 mL Solution For Nebulization 1.25 mg INHALATION Q4H PRN (Reason: Shortness Of Breath) 10 Days Qty: 30 0RF prednisone 20 mg Tablet 40 mg PO QDAY 5 Days Qty: 5 0RF levofloxacin 750 mg Tablet 750 mg PO QDAY 5 Days Qty: 5 0RF ipratropium-albuterol 0.5 mg-3 mg(2.5 mg base)/3 mL Solution For Nebulization 3 ml NEB Q4H PRNQty: 30 0RF Continued ibuprofen 800 mg tablet 1 tab PO TID PRN fluoxetine 20 mg capsule 3 cap PO QPM simvastatin 10 mg tablet 1 tab PO QPM alprazolam 0.5 mg tablet 1 tab PO BID PRN gabapentin 400 mg capsule 1 cap PO TID valsartan 40 mg tablet 1 tab PO QDAY temazepam 30 mg capsule 1 cap PO QPM PRN clonazepam 1 mg tablet 1 tab PO QPM PRN hydrocodone-acetaminophen 7.5-325 mg Tablet 1 tab PO BID PRN Orders to Discharge Patient Discharge Orders: Discharge (Routine); Ordered 01/03/22 Ordered By: Catherine Stein Follow ups/Referrals Follow ups/Referrals: [facility] [Other] (Home Oxygen Supply) FELICITA SPENCE [Primary Care Provider] - 01/10/22 9:30 am ALE GRIFFIN [REFERRING] - (Referral sent 01/03/22) Instructions Instructions: Chronic Obstructive Pulmonary Disease Exacerbation, [id number], Steps to Quit Smoking, [id number], Hypoxia, Pulmonary Fibrosis, How to Use a Nebulizer, Adult, Home Oxygen Use, Adult, Hypertension, Adult, [id number]-[id number], Community-Acquired Pneumonia, Adult, Pkaa-[id number] Stand Alone Forms: Precautions for [facility], [facility], Patient Portal, Social Distancing Patient Education Addl Reference Links: Living with COPD [email or web address] [email or web address]&[email or web address].c=F&pa [email or web address].dn=Female&age.v.v=[email or web address]&age.[email or web address].u=a&performer=[facility] OV&[email or web address] nguageCode.c=en&[email or web address].[email or web address]
== END 2022-01-03 14:50 | disposition home or self-care (01) ==
LOC: ER 08:03 → MED/SURG 08:03
PROVIDERS: ADMIT Internal Medicine; ATTEND Internal Medicine

== ENCOUNTER 2022-04-18 14:55 | Observation (INO) ==
[2022-04-18] MEDS ORDERED: TUSSIONEX PENNKINETIC SUSP PO PRN (16:48)
[2022-04-18] MEDS ORDERED: ROCEPHIN 1 GRAM IV PREMIX 1 G/50 ML IV.SOLN. IV SCH (17:00)
[2022-04-18] MEDS: DUONEB 0.5 MG/3 MG (3 mL) NEB SCH ×2 (17:15→21:02)
[2022-04-18] MEDS: PULMICORT NEB TX 0.5 MG NEB SCH ×2 (17:15→21:02)
[2022-04-18 17:22] VITALS: BMI 29.2
[2022-04-18 17:22] LABS: BASOPHILS # (AUTO) 0.1 X10^3/uL (0.0-0.1); BASOPHILS % (AUTO) 0.9 % (0.2-1.0); EOSINOPHILS # (AUTO) 0.6 x10^3/uL (0.0-0.2); EOSINOPHILS % (AUTO) 6.9 % (0.9-2.9); HEMOGLOBIN 10.7 g/dL (12.0-16.0); LYMPHOCYTES # (AUTO) 1.2 X10^3/uL (1.3-2.9); MEAN CORPUSCULAR HEMOGLOBIN 30.8 pg (27.0-34.0); MEAN CORPUSCULAR HGB CONC 34.6 g/dL (33.0-35.0); MEAN CORPUSCULAR VOLUME 89.1 fL (80.0-100.0); MEAN PLATELET VOLUME 8.3 fL (7.4-11.0); MONOCYTES # (AUTO) 0.5 x10^3/uL (0.3-0.8); MONOCYTES % (AUTO) 5.5 % (0.0-13.0); NEUTROPHILS # (AUTO) 6.4 x10^3/uL (2.2-4.8); NEUTROPHILS % (AUTO) 72.7 % (42.0-75.0); RED BLOOD COUNT 3.48 X10^6/uL (3.5-5.4); RED CELL DISTRIBUTION WIDTH 13.5 % (11.6-16.5); WHITE BLOOD COUNT 8.8 X10^3/uL (3.6-10.0)
[2022-04-18 17:35] LABS: ALANINE AMINOTRANSFERASE 23 Units/L (12-78); ALBUMIN 3.2 g/dL (3.4-5.0); ALKALINE PHOSPHATASE 104 Units/L (46-116); ASPARTATE AMINO TRANSFERASE 27 Units/L (15-37); BLOOD UREA NITROGEN 23 mg/dL (7-18); CALCIUM 8.8 mg/dL (8.5-10.1); CARBON DIOXIDE 26.9 mmol/L (21-32); CHLORIDE 101 mmol/L (98-107); COR CA(FOR HYPOALB) 9.4 mg/dL (8.5-10.1); SODIUM 136 mmol/L (136-145); TOTAL PROTEIN 7.3 g/dL (6.4-8.2); eGFR NON BLACK RACES 48 (>60)
[2022-04-18] MEDS: ROBITUSSIN DM PO SCH ×2 (19:32→20:20)
[2022-04-18] MEDS: SOLU-Medrol 40 MG VIAL IVP SCH ×2 (19:32→21:44)
[2022-04-18] MEDS: TAMIFLU PO SCH ×2 (19:33→20:19)
[2022-04-18] MEDS ORDERED: NS 1/2 1,000 ML IV 1,000 ML IV ONE (20:03)
[2022-04-18] MEDS: VSL#3 PO SCH (20:19)
[2022-04-18] MEDS: NS 1/2 1,000 ML IV 1,000 ML IV SCH (20:19)
[2022-04-18] MEDS ORDERED: NS 50 ML IV 50 ML IV ONE (20:33)
[2022-04-18] MEDS ORDERED: ROCEPHIN VIAL 1 GRAM ONE (20:33)
[2022-04-19] MEDS: TYLENOL 325 MG TAB PO PRN ×2 (00:56→14:06)
[2022-04-19] MEDS ORDERED: ZESTRIL TAB 20 MG PO ONE (03:13)
[2022-04-19] MEDS ORDERED: ZESTRIL TAB 20 MG ONE (03:29)
[2022-04-19] MEDS ORDERED: TOPROL XL PO ONE ×2 (03:29→20:23)
[2022-04-19] MEDS: TOPROL XL PO ONE ×2 (03:33→03:35)
[2022-04-19] MEDS: SOLU-Medrol 40 MG VIAL IVP SCH ×3 (05:13→21:02)
--- NOTE | 2022-04-19 06:00 | RAD ---
HISTORYPneumoniaSTUDYChest two [id number] heart is upper limits normal in size. Bettye are normal. Aorta is calcified. Diffuse interstitial lung changes are again identified and unchanged. No alveolar infiltrates, areas of consolidation, or pleural effusions are identified. Bony thorax is unremarkable.IMPRESSIONNo definite acute alveolar infiltrates or areas of consolidation identifiedDiffuse interstitial lung changes, chronic and stableElectronically signed by: MARISSA CHICAS (Apr 19, 2022 05:58:57)
[2022-04-19 06:21] LABS: BASOPHILS % (AUTO) 0.4 % (0.2-1.0); HEMATOCRIT 32.6 % (36.0-47.0); HEMOGLOBIN 11.2 g/dL (12.0-16.0); LYMPHOCYTES # (AUTO) 0.3 X10^3/uL (1.3-2.9); MEAN CORPUSCULAR HEMOGLOBIN 30.5 pg (27.0-34.0); MEAN CORPUSCULAR HGB CONC 34.3 g/dL (33.0-35.0); MEAN CORPUSCULAR VOLUME 88.9 fL (80.0-100.0); MEAN PLATELET VOLUME 8.7 fL (7.4-11.0); MONOCYTES # (AUTO) 0.1 x10^3/uL (0.3-0.8); MONOCYTES % (AUTO) 0.9 % (0.0-13.0); NEUTROPHILS # (AUTO) 10.6 x10^3/uL (2.2-4.8); NEUTROPHILS % (AUTO) 95.7 % (42.0-75.0); RED BLOOD COUNT 3.67 X10^6/uL (3.5-5.4); RED CELL DISTRIBUTION WIDTH 13.4 % (11.6-16.5)
[2022-04-19 07:01] LABS: ALANINE AMINOTRANSFERASE 24 Units/L (12-78); ALBUMIN 3.1 g/dL (3.4-5.0); ALKALINE PHOSPHATASE 103 Units/L (46-116); ASPARTATE AMINO TRANSFERASE 27 Units/L (15-37); BLOOD UREA NITROGEN 20 mg/dL (7-18); CALCIUM 9.2 mg/dL (8.5-10.1); CARBON DIOXIDE 23.5 mmol/L (21-32); CHLORIDE 104 mmol/L (98-107); COR CA(FOR HYPOALB) 9.9 mg/dL (8.5-10.1); COR NA(FOR HYPERGLY) 142 mmol/L (136-145); CREATININE 1.12 mg/dL (0.55-1.02); SODIUM 140 mmol/L (136-145); TOTAL PROTEIN 7.6 g/dL (6.4-8.2); eGFR NON BLACK RACES 52 (>60)
[2022-04-19 07:48] LABS: BAND NEUTROPHILS % 2 % (0-10); PLATELET MORPHOLOGY COMMENT NORMAL (NORMAL)
[2022-04-19] MEDS: PULMICORT NEB TX 0.5 MG NEB SCH ×2 (08:27→21:10)
[2022-04-19] MEDS: DUONEB 0.5 MG/3 MG (3 mL) NEB SCH ×4 (08:27→21:10)
[2022-04-19] MEDS ORDERED: MOTRIN TAB 800 MG PO PRN (08:52)
[2022-04-19] MEDS: LOVENOX INJ 40 MG SYR SC SCH (09:11)
[2022-04-19] MEDS: TAMIFLU PO SCH ×2 (09:12→21:02)
[2022-04-19] MEDS: VSL#3 PO SCH (09:12)
[2022-04-19] MEDS: ROCEPHIN VIAL 1 GRAM 1 G in NS 100 ML IV 100 ML IV SCH (09:13)
[2022-04-19] MEDS: NS 1/2 1,000 ML IV 1,000 ML IV SCH ×2 (09:14→21:03)
[2022-04-19] MEDS ORDERED: NS 1/2 1,000 ML IV 1,000 ML IV ONE ×2 (09:16→23:51)
[2022-04-19] MEDS: PROzac PO SCH (10:17)
[2022-04-19] MEDS: NEURONTIN CAP 400 MG PO SCH ×3 (10:17→21:02)
[2022-04-19] MEDS: PriLOSEC PO SCH (10:17)
[2022-04-19] MEDS: PEPCID TAB 20 MG PO SCH ×2 (10:17→21:02)
[2022-04-19] MEDS: DIOVAN TAB 80 MG PO SCH (10:18)
[2022-04-19] MEDS: ROBITUSSIN DM PO SCH ×4 (10:18→21:03)
[2022-04-19] MEDS ORDERED: KLONOPIN TAB 1 MG PO PRN (13:37)
[2022-04-19] MEDS ORDERED: NORCO 5/325 MG TAB PO PRN (13:41)
[2022-04-19] MEDS: ZANAFLEX PO SCH ×2 (14:05→21:02)
[2022-04-19] MEDS ORDERED: ZESTRIL TAB 20 MG PO SCH (21:00)
[2022-04-19] MEDS ORDERED: RESTORIL CAP 15 MG PO PRN (21:00)
[2022-04-19] MEDS: TOPROL XL PO SCH (21:02)
[2022-04-19] MEDS: ZOCOR TAB 10 MG PO SCH (21:02)
[2022-04-19] MEDS: XANAX PO PRN (21:02)
--- NOTE | 2022-04-19 22:15 | DR.H&P ---
H&P - History & Physical for Day of: H&P Date: 04/18/22 - Chief Complaint Chief Complaint: COUGH, SOB, BODY ACHES, FEVER - History of Present Illness History of Present Illness: IS A 66 YEAR OLD WHITE FEMALE. SHE WAS A DIRECT ADMISSION FOR TREATMENT OF BRONCHOPNEUMONIA. SHE COMPLAINS OF COUGH, SHORTNESS OF BREATH, BODY ACHES, AND FEVER FOR THE PAST 3 DAYS. ADDITIONALLY, SHE TESTED POSITIVE FOR INFLUENZA A AND B IN THE OFFICE. ON ARRIVAL TO THE HOSPITAL, VITALS WERE 98.5-65-24-97%-170/77. LABS WERE OBTAINED. WBC 8.8, RBC 3.48, HGB 10.7, HCT 31.0, PLT COUNT 332, SODIUM 136, POTASSIUM 3.6, CHLORIDE 101, CARBON DIOXIDE 26.9, BUN 23, CREATININE 1.20, GLUCOSE 90, CALCIUM 8.8, TOTAL BILI 0.30, AST 27, ALT 23, ALK PHOS 104, TOTAL PROTEIN 7.3, ALBUMIN 3.2. BLOOD AND SPUTUM CULTURES WERE SET UP. ALTHOUGH FLU TEST IN THE OFFICE WAS P OSITIVE, FLU/COVID/RSV WAS NEGATIVE HERE. A RESPIRATORY VIRAL SWAB WAS SENT OFF. A CHEST XRAY WAS OBTAINED AND REVEALED: The heart is upper limits normal in size. Bettye are normal. Aorta is calcified. Diffuse interstitial lung changes are again identified and unchanged. No alveolar infiltrates, areas of consolidation, or pleural effusions are identified. Bony thorax is unremarkable. SHE WAS STARTED ON NS AT 75 ML/HR, ROCEPHIN 1G IV DAILY, SOLU-MEDROL 40MG IV Q8H, TAMIFLU 75MG PO BID, DUONEBS QID, PULMICORT NEBS BID, TUSSIONEX 5ML PO Q12H, ROBITUSSIN DM 10ML QID, LOVENOX 40MG SC DAILY, AND HER HOME MEDICATIONS WERE RESUMED. OTHERWISE, WE WILL FOLLOW-UP WITH AM LABS AND CONTINUE TO MONITOR. TIME SPENT ON CLINICAL ASSESSMENT, REVIEWING LABS AND IMAGING, DECISION MAKING, AND DOCUMENTATION GREATER THAN 75 MINUTES. - Past Medical History Past Medical History: Anxiety, Dyslipidemia, GERD, Hypertension - Past Surgical History Surgical History: Ortho Surgery, Tonsillectomy, Other - Family History Family Medical History: Diabetes Mellitus, Heart Failure, Hypertension - Social History Does patient currently use any type of tobacco product: No Have you used tobacco products in the last 12 months: No Type of Tobacco Use: None Does any household member use tobacco: No Alcohol Use: None Drug Use: None - Medications Home Medications: No Known Drug Allergies Allergy (Verified 12/30/21 10:08) CONTINUE taking the following medications famotidine 20 mg tablet 1 tab PO BID 04/18/22 [History] fluoxetine 20 mg capsule 3 cap PO QAM 04/18/22 [History] gabapentin 400 mg capsule 1 cap PO TID 04/18/22 [History] ibuprofen 800 mg tablet 1 tab PO TID 04/18/22 [History] omeprazole 40 mg capsule,delayed release 1 cap PO QDAY 04/18/22 [History] simvastatin 10 mg tablet 1 tab PO QPM 04/18/22 [History] temazepam 30 mg capsule 1 cap PO QPM PRN 04/18/22 [History] tizanidine 4 mg tablet 1 tab PO TID 04/18/22 [History] valsartan 40 mg tablet 1 tab PO QDAY 04/18/22 [History] alprazolam 0.5 mg tablet 1 tab PO BID PRN 04/19/22 [History] clonazepam 1 mg tablet 1 tab PO QPM PRN 04/19/22 [History] ipratropium 0.5 mg-albuterol 3 mg (2.5 mg base)/3 mL nebulization soln 3 ml inhalation PRN PRN 04/19/22 [History] - Review of Systems Constitutional: Fever, Weakness Eyes: No Symptoms Reported ENT: No Symptoms Reported Respiratory: Cough, Shortness of Breath, SOB with Excertion Cardiovascular: No Symptoms Reported Gastrointestinal: No Symptoms Reported Genitourinary: No Symptoms Reported Musculoskeletal: No Symptoms Reported Skin: No Symptoms Reported Neurological: Weakness - Physical Exam Vital Signs: Temperature 98.9 F Pulse Rate [Right Brachial] 73 Pulse Rate 67 Respiratory Rate 20 Blood Pressure [Right Arm] 143/84 Blood Pressure [Left Arm] 161/77 Blood Pressure 134/64 O2 Sat by Pulse Oximetry 93 Oriented: Normal Eyes: Normal Ear: Normal Nose: Normal Throat: Normal Respiratory: Wheezes Throughout Cardiovascular: Normal : Normal Auscultation: Bowel Sounds: Normal Palpation: Normal Tenderness: Normal Skin: Normal Musculoskeletal: Normal Psychiatric: Normal Mood Description: Calm Affect: Normal Speech Pattern: Clear - Assessment/Plan (1) Bronchopneumonia Status: Acute Plan: ADMIT, NS AT 75 ML/HR, ROCEPHIN 1G IV DAILY, SOLU-MEDROL 40MG IV Q8H, TAMIFLU 75MG PO BID, DUONEBS QID, PULMICORT NEBS BID, TUSSIONEX 5ML PO Q12H, ROBITUSSIN DM 10ML QID, LOVENOX 40MG SC DAILY, AND HER HOME MEDICATIONS WERE RESUMED (2) COPD exacerbation Status: Acute (3) Anxiety Status: Chronic (4) DDD (degenerative disc disease) Qualifiers: Spinal region: lumbosacral Qualified Code(s): M51.37 - Other intervertebral disc degeneration, lumbosacral region Status: Chronic (5) HTN (hypertension) Qualifiers: Hypertension type: primary hypertension Qualified Code(s): I10 - Essential (primary) hypertension Status: Chronic - Allergies Allergies/Adverse Reactions: Allergies Allergy/AdvReac Type Severity Reaction Status Date / Time No Known Drug Allergies Allergy Verified 12/30/21 10:08
[2022-04-19] MEDS ORDERED: K-DUR TAB 20 MEQ PO PRN (22:49)
[2022-04-19] MEDS ORDERED: MICRO K EXTEN CAP 10 MEQ PO PRN (22:49)
[2022-04-19] MEDS ORDERED: K-RIDER 10 MEQ/NS 100 ML 10 MEQ/100 ML BAG IV PRN (22:49)
[2022-04-19] MEDS ORDERED: KLOR-CON PO PRN (22:49)
[2022-04-20] MEDS: NS 1/2 1,000 ML IV 1,000 ML IV SCH ×3 (02:50→20:52)
[2022-04-20] MEDS: SOLU-Medrol 40 MG VIAL IVP SCH ×3 (05:08→21:40)
[2022-04-20] MEDS: NEURONTIN CAP 400 MG PO SCH (05:09)
[2022-04-20] MEDS: ZANAFLEX PO SCH ×3 (05:09→21:40)
[2022-04-20 06:29] LABS: BASOPHILS % (AUTO) 0.2 % (0.2-1.0); HEMATOCRIT 30.5 % (36.0-47.0); HEMOGLOBIN 10.2 g/dL (12.0-16.0); LYMPHOCYTES # (AUTO) 0.8 X10^3/uL (1.3-2.9); LYMPHOCYTES % (AUTO) 4.5 % (21.0-51.0); MEAN CORPUSCULAR HEMOGLOBIN 29.7 pg (27.0-34.0); MEAN CORPUSCULAR HGB CONC 33.5 g/dL (33.0-35.0); MEAN CORPUSCULAR VOLUME 88.6 fL (80.0-100.0); MEAN PLATELET VOLUME 8.6 fL (7.4-11.0); MONOCYTES # (AUTO) 0.4 x10^3/uL (0.3-0.8); MONOCYTES % (AUTO) 2.3 % (0.0-13.0); NEUTROPHILS # (AUTO) 16.5 x10^3/uL (2.2-4.8); RED BLOOD COUNT 3.44 X10^6/uL (3.5-5.4); RED CELL DISTRIBUTION WIDTH 13.4 % (11.6-16.5); WHITE BLOOD COUNT 17.8 X10^3/uL (3.6-10.0)
[2022-04-20 06:42] LABS: CALCIUM 8.9 mg/dL (8.5-10.1); CARBON DIOXIDE 23.1 mmol/L (21-32); COR CA(FOR HYPOALB) 9.7 mg/dL (8.5-10.1); CREATININE 1.32 mg/dL (0.55-1.02); MAGNESIUM 1.9 mg/dL (2.0-2.9); TOTAL PROTEIN 7.2 g/dL (6.4-8.2)
[2022-04-20 07:42] LABS: BAND NEUTROPHILS % 1 % (0-10); PLATELET MORPHOLOGY COMMENT NORMAL (NORMAL)
[2022-04-20] MEDS: ROBITUSSIN DM PO SCH ×4 (08:18→20:54)
[2022-04-20] MEDS: LOVENOX INJ 40 MG SYR SC SCH (08:18)
[2022-04-20] MEDS: TAMIFLU PO SCH ×2 (08:20→20:55)
[2022-04-20] MEDS: PriLOSEC PO SCH (08:20)
[2022-04-20] MEDS: PROzac PO SCH (08:20)
[2022-04-20] MEDS: VSL#3 PO SCH (08:21)
[2022-04-20] MEDS: PULMICORT NEB TX 0.5 MG NEB SCH ×2 (08:30→21:43)
[2022-04-20] MEDS: DUONEB 0.5 MG/3 MG (3 mL) NEB SCH ×4 (08:30→21:43)
[2022-04-20] MEDS: PEPCID TAB 20 MG PO SCH (10:25)
[2022-04-20] MEDS: DIOVAN TAB 80 MG PO SCH (10:26)
[2022-04-20] MEDS: ROCEPHIN VIAL 1 GRAM 1 G in NS 100 ML IV 100 ML IV SCH (10:26)
[2022-04-20] MEDS: MAGNESIUM SULFATE 1 GRAM/100 mL PREMIX 1 G/100 ML BAG IV PRN ×2 (11:13→14:30)
--- NOTE | 2022-04-20 12:30 | PCM.PROG ---
Progress Note - Progress Note for Day of Date of Exam: 04/20/22 - Subjective Subjective: WAS ADMITTED FOR TREATMENT OF BRONCHOPNEUMONIA AND COPD EXACERBATION. TODAY, SHE IS ALERT AND ORIENTED, LYING IN BED ON MORNING ROUNDS. SHE CONTINUES WITH COMPLAINTS OF COUGH, SHORTNESS OF BREATH, AND WEAKNESS. SHE ADMITS TO SLIGHT IMPROVEMENT IN SYMPTOMS SINCE ADMISSION. ON EXAMINATION, HEART IS REGULAR IN RATE AND RHYTHM. BILATERAL LUNGS ARE NOTED WITH EXPIRATORY WHEEZING. ABDOMEN IS ROUND, SOFT, AND NON-TENDER WITH NORMAL BOWEL SOUNDS NOTED IN ALL QUADRANTS. NO UPPER OR LOWER EXTREMITY EDEMA NOTED. HER VITALS THIS MORNING ARE: 98.9-62-18-97%-125/60. LABS WERE OBTAINED. WBC 17.8 (INCREASE FROM 11.0 YESTERDAY), RBC 3.44, HGB 10.2, HCT 30.5, SODIUM 141, POTASSIUM 3.4, CHLORIDE 104, BUN 22, CREATININE 1.32, GLUCOSE 146, MAGNESIUM 1.9, TOTAL BILI 0.30, AST 28, ALT 22, ALK PHOS 89, TOTAL PROTEIN 7.2, ALBUMIN 3.0. RESPIRATORY VIRAL PANEL PENDING. BLOOD AND SPUTUM CULTURES ARE PENDING. SHE IS CURRENTLY RECEIVING NS AT 75 ML/HR, ROCEPHIN 1G IV DAILY, SOLU-MEDROL 40MG IV Q8H, TAMIFLU 75MG PO BID, DUONEBS QID, PULMICORT NEBS BID, TUSSIONEX 5ML PO Q12H, ROBITUSSIN DM 10ML QID, LOVENOX 40MG SC DAILY, AND HER HOME MEDICATIONS WERE RESUMED. WE WILL CONTINUE WITH CURRENT PLAN OF CARE TODAY. OTHERWISE, WE PLAN TO FOLLOW-UP WITH AM LABS AND CONTINUE TO MONITOR. TIME SPENT ON CLINICAL ASSESSMENT, REVIWING LABS AND IMAGING, DECISION MAKING, AND DOCUMENTATION GREATER THAN 45 MINUTES. - Past Medical Family Social History Past Med/Fam/Surg Hx: No changes since H&P Allergies: Allergies No Known Drug Allergies Allergy (Verified 12/30/21 10:08) - Review of Systems ROS: No change since H&P - Vital Signs and I&O's Vital Signs: Temperature 99 F Pulse Rate [Right Brachial] 64 Pulse Rate 70 Respiratory Rate 18 Blood Pressure [Right Arm] 124/65 Blood Pressure [Left Arm] 161/77 Blood Pressure 134/64 O2 Sat by Pulse Oximetry 97 Intake and Output: Intake & Output 04/18/22 04/19/22 04/20/22 04/21/22 11:59 11:59 11:59 11:59 Intake Total 1238 / 1238 2711 / 2 Output Total 450 / 450 Balance 788 / 788 2711 / 2711 - Physical Exam Oriented: Normal Eyes: Normal Ear: Normal Nose: Normal Throat: Normal Respiratory: Generalized, Diminished Cardiovascular: Normal : Normal Auscultation: Bowel Sounds: Normal Palpation: Normal Tenderness: Normal Skin: Normal Musculoskeletal: Normal Psychiatric: Normal Mood Description: Calm Affect: Normal Speech Pattern: Clear, Appropriate - Laboratory and Diagnostics Result Diagrams: 04/20/22 05:59 04/20/22 05:59 Labs: 04/18/22 17:10 Blood Blood Culture - Preliminary 04/18/22 17:03 Blood Blood Culture - Preliminary 04/19/22 14:00 Sputum - Endotracheal Wash Sputum Culture - Preliminary 04/19/22 14:00 Sputum - Endotracheal Wash - Final Laboratory WBC 17.8 X10^3/uL (3.6-10.0) H 04/20/22 05:59 RBC 3.44 X10^6/uL (3.5-5.4) L 04/20/22 05:59 Hgb 10.2 g/dL (12.0-16.0) L 04/20/22 05:59 Hct 30.5 % (36.0-47.0) L 04/20/22 05:59 MCV 88.6 fL (80.0-100.0) 04/20/22 05:59 MCH 29.7 pg (27.0-34.0) 04/20/22 05:59 MCHC 33.5 g/dL (33.0-35.0) 04/20/22 05:59 RDW 13.4 % (11.6-16.5) 04/20/22 05:59 Plt Count 432 X10^3/uL (150.0-450.0) 04/20/22 05:59 Plt Count Comment Adequate (ADEQUATE) 04/20/22 05:59 MPV 8.6 fL (7.4-11.0) 04/20/22 05:59 Neut % (Auto) 93.0 % (42.0-75.0) H 04/20/22 05:59 Lymph % (Auto) 4.5 % (21.0-51.0) L 04/20/22 05:59 Hanson % (Auto) 2.3 % (0.0-13.0) 04/20/22 05:59 Eos % (Auto) 0.0 % (0.9-2.9) L 04/20/22 05:59 Baso % (Auto) 0.2 % (0.2-1.0) 04/20/22 05:59 Neut # (Auto) 16.5 x10^3/uL (2.2-4.8) H 04/20/22 05:59 Lymph # (Auto) 0.8 X10^3/uL (1.3-2.9) L 04/20/22 05:59 Hanson # (Auto) 0.4 x10^3/uL (0.3-0.8) 04/20/22 05:59 Eos # (Auto) 0.0 x10^3/uL (0.0-0.2) 04/20/22 05:59 Baso # (Auto) 0.0 X10^3/uL (0.0-0.1) 04/20/22 05:59 Absolute Nucleated RBC 0.0 /100WBC 04/20/22 05:59 Total Counted 100 04/20/22 05:59 Neutrophils % (Manual) 93 % (39-76) H 04/20/22 05:59 Band Neutrophils % 1 % (0-10) 04/20/22 05:59 Lymphocytes % (Manual) 6 % (13-43) L 04/20/22 05:59 Plt Morphology Comment Normal (NORMAL) 04/20/22 05:59 RBC Morphology Normal (NORMAL) 04/20/22 05:59 Sodium 141 mmol/L (136-145) 04/20/22 05:59 Corrected Sodium 142 mmol/L (136-145) 04/20/22 05:59 Potassium 3.4 mmol/L (3.5-5.1) L 04/20/22 05:59 Chloride 104 mmol/L (98-107) 04/20/22 05:59 Carbon Dioxide 23.1 mmol/L (21-32) 04/20/22 05:59 BUN 22 mg/dL (7-18) H 04/20/22 05:59 Creatinine 1.32 mg/dL (0.55-1.02) H 04/20/22 05:59 Est GFR (MDRD) Af Amer 52 (>60) L 04/20/22 05:59 Est GFR (MDRD) Non-Af 43 (>60) L 04/20/22 05:59 Glucose 146 mg/dL (65-99) H 04/20/22 05:59 Calcium 8.9 mg/dL (8.5-10.1) 04/20/22 05:59 Corrected Calcium 9.7 mg/dL (8.5-10.1) 04/20/22 05:59 Magnesium 1.9 mg/dL (2.0-2.9) L 04/20/22 05:59 Total Bilirubin 0.30 mg/dL (0.2-1.0) 04/20/22 05:59 AST 28 Units/L (15-37) 04/20/22 05:59 ALT 22 Units/L (12-78) 04/20/22 05:59 Alkaline Phosphatase 89 Units/L (46-116) 04/20/22 05:59 Total Protein 7.2 g/dL (6.4-8.2) 04/20/22 05:59 Albumin 3.0 g/dL (3.4-5.0) L 04/20/22 05:59 Globulin 4.2 g/dL (2.5-4.5) 04/20/22 05:59 Albumin/Globulin Ratio 0.7 Ratio (1.1-2.1) L 04/20/22 05:59 SARS-CoV-2 (PCR) Negative (NEGATIVE) 04/18/22 17:00 Influenza Type A (PCR) Negative (NEGATIVE) 04/18/22 17:00 Influenza Type B (PCR) Negative (NEGATIVE) 04/18/22 17:00 RSV (PCR) Negative (NEGATIVE) 04/18/22 17:00 Resp Viral Panel (PCR) See scanned report 04/18/22 16:58 - Plan (1) Bronchopneumonia Status: Acute Plan: NS AT 75 ML/HR, ROCEPHIN 1G IV DAILY, SOLU-MEDROL 40MG IV Q8H, TAMIFLU 75MG PO BID, DUONEBS QID, PULMICORT NEBS BID, TUSSIONEX 5ML PO Q12H, ROBITUSSIN DM 10ML QID, LOVENOX 40MG SC DAILY, AND HER HOME MEDICATIONS WERE RESUMED (2) COPD exacerbation Status: Acute (3) Anxiety Status: Chronic (4) DDD (degenerative disc disease) Status: Chronic Qualifiers: Spinal region: lumbosacral Qualified Code(s): M51.37 - Other intervertebral disc degeneration, lumbosacral region (5) HTN (hypertension) Status: Chronic Qualifiers: Hypertension type: primary hypertension Qualified Code(s): I10 - Essential (primary) hypertension
--- NOTE | 2022-04-20 13:03 | RAD ---
HISTORYBRONCHOPNEUMONIASTUDYCHEST, 1 [id number]/26/2022FINDINGSIntersti tial opacity is not changed from yesterday. I believe this is chronic as seen on the CT 12/31/2021.No focal abnormality to suggest an acute pneumonia. No pleural effusion or pneumothorax.Cardiomegaly is present. Vascular calcifications are present compatible with atherosclerosis.Bones are unremarkable. [Fixation hardware seen in the cervical spine.]IMPRESSION1. No acute findingElectronically signed by: Brandon Selby (Apr 20, 2022 13:01:42)
[2022-04-20] MEDS: NEURONTIN CAP 300 MG PO SCH ×2 (14:29→21:40)
[2022-04-20] MEDS ORDERED: TOPROL XL PO ONE (20:06)
[2022-04-20] MEDS ORDERED: NS 1/2 1,000 ML IV 1,000 ML IV ONE (20:07)
[2022-04-20] MEDS: XANAX PO PRN (20:54)
[2022-04-20] MEDS: TOPROL XL PO SCH (20:55)
[2022-04-20] MEDS: ZOCOR TAB 10 MG PO SCH (20:55)
[2022-04-21] MEDS: NS 1/2 1,000 ML IV 1,000 ML IV SCH ×2 (01:41→09:54)
[2022-04-21] MEDS: ZANAFLEX PO SCH (05:03)
[2022-04-21] MEDS: NEURONTIN CAP 300 MG PO SCH (05:03)
[2022-04-21] MEDS: SOLU-Medrol 40 MG VIAL IVP SCH (05:03)
--- NOTE | 2022-04-21 06:32 | RAD ---
HISTORYShortness of breathSTUDYChest AP [id number]/27/2022FINDINGSHear t is upper limits normal in size. No congestive heart failure is noted. Bettye are normal. Aorta is calcified. Diffuse bilateral interstitial lung changes are present, chronic, and unchanged from the prior examination considering a difference in film technique. No alveolar infiltrates or areas of consolidation identified. No pleural effusions are identified.IMPRESSIONDiffuse bilateral chronic interstitial lung disease, unchangedElectronically signed by: MARISSA CHICAS (Apr 21, 2022 06:31:08)
[2022-04-21 06:33] LABS: BASOPHILS % (AUTO) 0.2 % (0.2-1.0); HEMATOCRIT 26.2 % (36.0-47.0); HEMOGLOBIN 8.9 g/dL (12.0-16.0); LYMPHOCYTES # (AUTO) 0.7 X10^3/uL (1.3-2.9); LYMPHOCYTES % (AUTO) 5.4 % (21.0-51.0); MEAN CORPUSCULAR HEMOGLOBIN 30.4 pg (27.0-34.0); MEAN CORPUSCULAR VOLUME 89.4 fL (80.0-100.0); MEAN PLATELET VOLUME 8.3 fL (7.4-11.0); MONOCYTES # (AUTO) 0.4 x10^3/uL (0.3-0.8); MONOCYTES % (AUTO) 2.8 % (0.0-13.0); NEUTROPHILS # (AUTO) 11.4 x10^3/uL (2.2-4.8); NEUTROPHILS % (AUTO) 91.6 % (42.0-75.0); RED BLOOD COUNT 2.93 X10^6/uL (3.5-5.4); RED CELL DISTRIBUTION WIDTH 13.3 % (11.6-16.5); WHITE BLOOD COUNT 12.4 X10^3/uL (3.6-10.0)
[2022-04-21 06:44] LABS: ALANINE AMINOTRANSFERASE 23 Units/L (12-78); ALBUMIN 2.7 g/dL (3.4-5.0); ALKALINE PHOSPHATASE 70 Units/L (46-116); ASPARTATE AMINO TRANSFERASE 19 Units/L (15-37); BLOOD UREA NITROGEN 28 mg/dL (7-18); CALCIUM 8.4 mg/dL (8.5-10.1); CARBON DIOXIDE 23.7 mmol/L (21-32); CHLORIDE 106 mmol/L (98-107); COR CA(FOR HYPOALB) 9.4 mg/dL (8.5-10.1); COR NA(FOR HYPERGLY) 141 mmol/L (136-145); CREATININE 1.03 mg/dL (0.55-1.02); MAGNESIUM 2.6 mg/dL (2.0-2.9); SODIUM 140 mmol/L (136-145); TOTAL PROTEIN 6.2 g/dL (6.4-8.2); eGFR NON BLACK RACES 57 (>60)
[2022-04-21 07:13] LABS: PLATELET MORPHOLOGY COMMENT NORMAL (NORMAL)
[2022-04-21] MEDS: PULMICORT NEB TX 0.5 MG NEB SCH (08:35)
[2022-04-21] MEDS: DUONEB 0.5 MG/3 MG (3 mL) NEB SCH (08:35)
[2022-04-21 08:46] VITALS: BP 141/75
[2022-04-21] MEDS: PEPCID TAB 20 MG PO SCH (08:48)
[2022-04-21] MEDS: ROCEPHIN VIAL 1 GRAM 1 G in NS 100 ML IV 100 ML IV SCH (08:48)
[2022-04-21] MEDS: PriLOSEC PO SCH (08:48)
[2022-04-21] MEDS: TAMIFLU PO SCH (08:48)
[2022-04-21] MEDS: ROBITUSSIN DM PO SCH (08:48)
[2022-04-21] MEDS: PROzac PO SCH (08:49)
[2022-04-21] MEDS: VSL#3 PO SCH (08:50)
[2022-04-21] MEDS: LOVENOX INJ 40 MG SYR SC SCH (08:50)
[2022-04-21] MEDS: DIOVAN TAB 80 MG PO SCH (08:50)
[2022-04-21] MEDS ORDERED: NS 1/2 1,000 ML IV 1,000 ML IV ONE (09:38)
== END 2022-04-21 12:37 | disposition home or self-care (01) ==
LOC: MED/SURG
PROVIDERS: ADMIT Internal Medicine; ATTEND Internal Medicine
DX: E78.2 Mixed hyperlipidemia; R06.02 Shortness of breath; J10.08 Influenza due to other identified influenza virus with other specified pneumonia; F41.8 Other specified anxiety disorders; M51.37 Other intervertebral disc degeneration, lumbosacral region; K21.9 Gastro-esophageal reflux disease without esophagitis; Z20.822 Contact with and (suspected) exposure to COVID-19; J44.1 Chronic obstructive pulmonary disease with (acute) exacerbation; R94.4 Abnormal results of kidney function studies; J16.8 Pneumonia due to other specified infectious organisms; I10 Essential (primary) hypertension